=== PATIENT | female | born 1965 | race Caucasian/White ===

== ENCOUNTER 2021-06-25 18:28 | Emergency (ER) | payer BC, SELFPAY ==
[2021-06-25 19:11] VITALS: BP 0/0; PULSE 0; RESP 0; TEMP -17.7; TEMP 0; O2SAT 0
== END 2021-06-25 19:12 | disposition left against medical advice (07) ==
LOC: UTC 18:37
PROVIDERS: Emergency Provider Nurse Practitioner
DX: Z53.21 Procedure and treatment not carried out due to patient leaving prior to being seen by health care provider (principal)

== ENCOUNTER 2021-06-29 09:50 | Emergency (ER) | payer BC, SELFPAY ==
[2021-06-29 10:20] VITALS: BP 134/91; PULSE 96; RESP 21; TEMP 37.1; O2SAT 98; BMI 27.8
--- NOTE | 2021-06-29 10:49 | HMH.EDUTC ---
[facility] [place] Clinical Impression: Exposure to COVID-19 virus Sinusitis Qualifiers: Sinusitis location: unspecified location Chronicity: unspecified Qualified Code(s): J32.9 - Chronic sinusitis, unspecified Disposition: Home, Self-Care Condition on Discharge: Good Instructions: DI for COVID-19 (Suspected or Confirmed ), Coronavirus Disease 2019, Preventing the Spread of Coronavirus Discharge Instructions, DI for Vomiting -- Adult, Nausea and Vomiting-Adult Additional Instructions: *Monitor Temp, Over the counter Motrin or Tylenol as directed/as needed Tylenol every 4 hours and Motrin every 6 hours (as long as your family doctor has told you that you can take it) for fever or pain. and straight to ER if unable to lower temp less than 101.0 after medication given *Warm salt water gargles may help to soothe the throat *Throat Lozenges *Warm fluids like tea with honey may help to soothe the throat *Sleep elevated *Humidifier/Vaporizer Follow up IMMEDIATELY for new or worsening symptoms or no Noticeable improvement over the next 48-72 hours. 911 for difficulty breathing or swallowing You were tested for today for COVID19 your test result should be back in the next 24-48 hours, you may call to the [facility] to see if your test results are back in the next 48 hours [phone] [facility] hours are 9am-9pm You was given a handout with instructions for Self Quarantine and Self isolation for while you wait on test results and what to do if they are positive If you are positive the Health Dept will be contacting you also Make sure to take your Vitamins Vit. C Vit D and Zinc if you can take them Prescriptions: Doxycycline Monohydrate [Doxycycline Panola 100mg Tab] 100 mg PO Q12 7 Days #14 tab Transmission Status: Pending to [id number] Ondansetron [Zofran 4mg ODT] 4 mg PO TIDP PRN #6 tab PRN Reason: Nausea Transmission Status: Pending to [id number] Referrals: Provider,Referral, [Primary Care Provider] - As needed Forms: Work/School Release Time of Disposition: 10:55 Medical Decision Making - Flip Inquiry Pt receiving controlled substance: No Flip was queried for this patient: No Vital Signs: 06/29/21 10:20 Temperature 98.7 F Temperature Source Oral Pulse Rate [Right Brachial] 96 H Respiratory Rate 21 Blood Pressure [Right Arm] 134/91 H Blood Pressure Mean [Right Arm] 105 Blood Pressure Source [Right Arm] Automatic Cuff Blood Pressure Position [Right Arm] Sitting 02 Sat by Pulse Oximetry 98 Oxygen Delivery Method Room Air Orders (Tests/Meds): ORDERS Category Date Time Status Covid-19 Nasal PCR ([facility]) Routine Lab 06/29/21 10:25 Ordered Medical Decision Narrative: Patient states that she has taken zofran before with no interactions or complications [facility] [place] - General Stated complaint: all covid symptoms Time Seen by Provider: 06/29/21 10:49 Mode of Arrival: Ambulatory Source of Information: Patient Limitations: No Limitations Description of Symptoms (Recalled from Triage Doc. by RN): PATIENT C/O SORE THROAT, VOMITING, AND LOSS OF TASTE AND SMELL X 4 DAYS. RECENTLY EXPOSED TO COVID HEENT Symptoms (Recalled from RN notes): Yes Resp Symptoms (Recalled from RN notes): No Skin Symptoms (Recalled from RN notes): No MS Symptoms (Recalled from RN notes): No Functional Status (Recalled from RN notes): WNL - History of Present Illness Provider Complaint: Patient states that she was exposed to COVID last week States that she has since been having sinus pain and pressure along chills, body aches, N/V and cough State that she also loss her taste and smell over the weekend States that sister is having similar symptoms so they come in to get tested for COVID and get her sinuses checked - Related Data Home Medications Medication Instructions Recorded Confirmed cetirizine 10 mg capsule 10 mg PO QDAY 11/30/17 estradiol 1 mg tablet 0.5 mg PO QDAY 11/30/17 montelukast 4 mg or
[2021-06-29 11:00] VITALS: BP 134/91; PULSE 96; RESP 21; TEMP 37.1; O2SAT 98
--- NOTE | 2021-06-30 09:15 | PC.NURSE ---
PT NOTIFIED OF POSITIVE COVID RESULT
== END 2021-06-29 11:05 | disposition home or self-care (01) ==
PROVIDERS: Emergency Provider Nurse Practitioner
DX: U07.1 COVID-19 (principal); J32.9 Chronic sinusitis, unspecified
CPT/HCPCS: 99202; G0463; U0003

== ENCOUNTER 2021-07-05 10:00 | Outpatient (CLI) | payer BC, SELFPAY ==
[2021-07-05] VITALS (8 sets, daily range): BP systolic 110–134; BP diastolic 83–90; PULSE 72–96; RESP 16–18; TEMP 36.8; O2SAT 97–99
== END 2021-07-05 12:30 | disposition home or self-care (01) ==
PROVIDERS: PCP Family Medicine; Visit Provider Family Medicine
DX: U07.1 COVID-19 (principal)
CPT/HCPCS: 96365

== ENCOUNTER 2022-10-06 08:43 | Emergency (ER) | payer BC, SELFPAY ==
[2022-10-06 09:07] VITALS: BP 117/82; PULSE 69; RESP 16; TEMP 36.8; O2SAT 97; BMI 32.1
--- NOTE | 2022-10-06 09:09 | EXP.UTC ---
Discharge Plan Disposition Patient Disposition: Home, Self-Care Condition: Good Prescriptions Prescriptions: New benzonatate [benzonatate] 100 mg capsule 100 mg PO TIDP PRN (Reason: Cough) Qty: 30 0RF oseltamivir [Tamiflu] 75 mg capsule 75 mg PO BID Qty: 10 0RF No Action estradiol 1 mg tablet 0.5 mg PO QDAY montelukast [Singulair] 4 mg granules in packet PO cetirizine [Zyrtec] 10 mg capsule 10 mg PO QDAY omeprazole 10 mg capsule,delayed release(DR/EC) 10 mg PO ONCE ranitidine HCl 150 mg capsule 150 mg PO QHS promethazine-DM 6.25-15 mg/5 mL syrup 5 ml PO Q6H PRN (Reason: cough) Qty: 118 0RF ondansetron 4 MG tablet,disintegrating 4 mg PO TIDP PRN (Reason: Nausea) Qty: 6 0RF doxycycline monohydrate 100 MG tablet 100 mg PO Q12 7 Days Qty: 14 0RF Referrals Follow up/Referrals: Kelley Frazier DO [Primary Care Provider] - See instructions Activity Restrictions/Add. Instructions Additional Instructions/Restrictions: Drink plenty of fluids. Take tylenol or ibuprofen for pain or fever. Take the medications as directed. Follow up with your regular doctor. GO TO THE ER FOR ANY WORSENING SYMPTOMS Clinical Impressions Clinical Impression: Influenza A Stand Alone Forms Stand Alone Forms: Work/School Release Instructions Patient Instructions: DI for Influenza -- Adult, Oseltamivir Discharge ED Provider: Fransico Nguyen [facility] General Stated complaint: cough, runny nose Mode of Arrival: Ambulatory Source of Information: Patient Limitations: No Limitations Time Seen by Provider: 10/06/22 09:09 HEENT Symptoms (Recalled from RN notes): Yes Resp Symptoms (Recalled from RN notes): Yes Skin Symptoms (Recalled from RN notes): No MS Symptoms (Recalled from RN notes): No Functional Status (Recalled from RN notes): n/a History of Present Illness Provider Complaint: pt comes in with c/o sore throat, nasal drainage, productive cough, congestion, hoarseness. symptoms began 3-4 days ago Related Data Home Medications Medication Instructions Recorded Confirmed cetirizine 10 mg capsule (Zyrtec) 10 mg PO QDAY 11/30/17 estradiol 1 mg tablet 0.5 mg PO QDAY 11/30/17 montelukast 4 mg oral granules in PO 11/30/17 packet (Singulair) omeprazole 10 mg capsule,delayed 10 mg PO ONCE 11/30/17 release ranitidine HCl 150 mg capsule 150 mg PO QHS 11/30/17 Previous Rx's Medication Instructions Recorded promethazine-DM 6.25 mg-15 mg/5 mL 5 ml PO Q6H PRN cough #118 mL 11/30/17 oral syrup doxycycline monohydrate 100 mg 100 mg PO Q12 7 days #14 tabs 06/29/21 tablet ondansetron 4 mg disintegrating 4 mg PO TIDP PRN Nausea #6 tabs 06/29/21 tablet benzonatate 100 mg capsule 100 mg PO TIDP PRN Cough #30 caps 10/06/22 oseltamivir 75 mg capsule (Tamiflu) 75 mg PO BID #10 caps 10/06/22 Allergies Allergy/AdvReac Type Severity Reaction Status Date / Time cefaclor [From Ceclor] AdvReac Intermediate Verified 10/06/22 09:09 tramadol [From Ultram] AdvReac Mild Verified 10/06/22 09:09 morphine AdvReac Verified 10/06/22 09:09 Worker's Comp Is this a Worker's Comp case?: No PFSH PFSH Social History Smoking Status: Never smoker alcohol intake: never current occupational status: other Travel in the last 8 weeks: None ROS Obtained: Yes All systems reviewed & no additional complaints except as documented Constitutional Constitutional: Reports chills and Reports fever(s) Eyes Eyes: Denies eye discharge ENT Ears, Nose, Mouth, and Throat: Reports as per HPI Cardiovascular Cardiovascular: Denies chest pain Respiratory Respiratory: Denies chest congestion and Reports cough Gastrointestinal Gastrointestingal: Reports nausea; Denies abdominal pain, constipation, cramping, diarrhea or vomiting Musculoskeletal Musculoskeletal: Denies arthralgias Integumentary/Breasts Skin/Breast:
[2022-10-06 09:11] LABS: UTC Influenza A Antigen Positive (Negative); UTC Influenza B Antigen Negative (Negative); UTC Strep Screen (Rapid) Negative (Negative)
[2022-10-06 09:37] VITALS: BP 117/82; PULSE 69; RESP 16; TEMP 36.8
== END 2022-10-06 09:47 | disposition home or self-care (01) ==
PROVIDERS: Emergency Provider Nurse Practitioner Family; PCP Family Medicine
DX: J10.1 Influenza due to other identified influenza virus with other respiratory manifestations (principal)
CPT/HCPCS: 87804; 87880; 99212; G0463

== ENCOUNTER 2022-10-13 19:12 | Emergency (ER) | payer OTHER, SELFPAY ==
[2022-10-13 20:25] VITALS: BP 144/100; PULSE 79; RESP 18; TEMP 36.8; O2SAT 97; BMI 32.1
[2022-10-13 20:31] VITALS: BMI 32.1
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
--- NOTE | 2022-10-13 20:33 | PC.NURSE ---
pt has refused to wear a c-collar
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
[2022-10-13 22:41] VITALS: BP 145/80; PULSE 85; RESP 20; TEMP 36.8; O2SAT 98
== END 2022-10-13 22:53 | disposition home or self-care (01) ==
PROVIDERS: Emergency Provider Emergency Medicine; PCP Family Medicine
DX: S16.1XXA Strain of muscle, fascia and tendon at neck level, initial encounter (principal); S70.02XA Contusion of left hip, initial encounter; V89.2XXA Person injured in unspecified motor-vehicle accident, traffic, initial encounter; Z88.5 Allergy status to narcotic agent; Z88.1 Allergy status to other antibiotic agents; Z87.891 Personal history of nicotine dependence
CPT/HCPCS: 70450; 71046; 72125; 73502; 99285

== ENCOUNTER 2022-12-18 09:13 | Emergency (ER) | payer OTHER, SELFPAY ==
[2022-12-18 09:25] VITALS: BP 131/86; PULSE 76; RESP 17; TEMP 36.7; O2SAT 98; BMI 29.7
[2022-12-18 09:35] LABS: Apearance,Urine Cloudy (Clear); Color,Urine Dark Yellow (Yellow); PH,Urine 6.5 (5.0-8.5); Protein,Urine Trace (Negative); Specific Gravity, Urine 1.025 (1.005-1.030)
[2022-12-18 09:36] LABS: Bilirubin,Urine Negative (Negative); Blood, Urine 1+ (Negative); Glucose,Urine (UA) Negative (Negative); Ketones,Urine Negative (Negative); Urobilinogen,Urine 1 EU/dl (0.2)
[2022-12-18 09:37] LABS: UTC Leukocyte Esterase,Urine 1+ (Negative); UTC Nitrate,Urine Positive (Negative)
--- NOTE | 2022-12-18 09:54 | EXP.UTC ---
Discharge Plan Disposition Patient Disposition: Home, Self-Care Condition: Good Prescriptions Prescriptions: New sulfamethoxazole-trimethoprim [Bactrim DS] 800-160 mg tablet 1 tab PO Q12H Qty: 20 0RF No Action estradiol 1 mg tablet 0.5 mg PO QDAY montelukast [Singulair] 4 mg granules in packet PO cetirizine [Zyrtec] 10 mg capsule 10 mg PO QDAY omeprazole 10 mg capsule,delayed release(DR/EC) 10 mg PO ONCE ranitidine HCl 150 mg capsule 150 mg PO QHS ondansetron 4 MG tablet,disintegrating 4 mg PO TIDP PRN (Reason: Nausea) Qty: 6 0RF Referrals Follow up/Referrals: Kelley Frazier DO [Primary Care Provider] - See instructions Activity Restrictions/Add. Instructions Additional Instructions/Restrictions: Increase fluids, water and not soda or tea. Can drink cranberry juice or cranberry extract. White front to back Wear cotton underwear Empty bladder after intercourse Start antibiotics immediately and make sure you take the full course although you may start to see improvement over the next 48 hours. You can eat yogurt or take probiotics to decrease diarrhea or yeast infection caused by the antibiotic Be sure to follow-up anytime for new or worsening symptoms in 48 hours for wound urine culture results be sure to let you PCP no recent urine for culture so they can request records and ensure that you have appropriate antibiotic if you are not getting better or getting worse. If symptoms worsen or do not improve return or be seen in the ER. Follow-up with primary care this week. Clinical Impressions Clinical Impression: UTI (urinary tract infection) Instructions Patient Instructions: DI for Urinary Tract Infection (UTI) Discharge ED Provider: Azam ([facility])Reilly [facility] [place] HPI General Stated complaint: Possible UTI Burning Mode of Arrival: Ambulatory Source of Information: Patient Limitations: No Limitations Time Seen by Provider: 12/18/22 09:54 Description of Symptoms (Recalled from Triage Doc. by RN): PATIENT C/O BURNING WITH URINATION X 2 DAYS HEENT Symptoms (Recalled from RN notes): No Resp Symptoms (Recalled from RN notes): No Skin Symptoms (Recalled from RN notes): No MS Symptoms (Recalled from RN notes): No Functional Status (Recalled from RN notes): WNL History of Present Illness Provider Complaint: 57 yr old female presents for burning with urination, freq, urgency for 3 days Related Data Home Medications Medication Instructions Recorded Confirmed cetirizine 10 mg capsule (Zyrtec) 10 mg PO QDAY 11/30/17 estradiol 1 mg tablet 0.5 mg PO QDAY 11/30/17 montelukast 4 mg oral granules in PO 11/30/17 packet (Singulair) omeprazole 10 mg capsule,delayed 10 mg PO ONCE 11/30/17 release ranitidine HCl 150 mg capsule 150 mg PO QHS 11/30/17 Previous Rx's Medication Instructions Recorded ondansetron 4 mg disintegrating 4 mg PO TIDP PRN Nausea #6 tabs 06/29/21 tablet sulfamethoxazole 800 1 tab PO Q12H #20 tabs 12/18/22 mg-trimethoprim 160 mg tablet (Bactrim DS) Allergies Allergy/AdvReac Type Severity Reaction Status Date / Time cefaclor [From Ceclor] AdvReac Intermediate Verified 10/06/22 09:09 tramadol [From Ultram] AdvReac Mild Verified 10/06/22 09:09 morphine AdvReac Verified 10/06/22 09:09 Worker's Comp Is this a Worker's Comp case?: No [facility] Disclaimer: The information contained in this section may have been updated after the patient was seen, as this information can be updated by other users. 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
[2022-12-18 10:17] VITALS: BP 131/86; PULSE 76; RESP 17; TEMP 36.7; O2SAT 98
== END 2022-12-18 10:21 | disposition home or self-care (01) ==
PROVIDERS: Emergency Provider Nurse Practitioner Family; PCP Family Medicine
DX: N39.0 Urinary tract infection, site not specified (principal)
CPT/HCPCS: 81003; 87086; 87088; 87186; 99212; 99213; G0463

== ENCOUNTER 2023-05-11 13:50 | Emergency (ER) | payer OTHER, SELFPAY ==
[2023-05-11 14:00] VITALS: BP 110/73; PULSE 63; RESP 18; TEMP 36.6; O2SAT 98; BMI 27.2
[2023-05-11 14:14] LABS: Apearance,Urine Clear (Clear); Bilirubin,Urine Negative (Negative); Blood, Urine 3+ (Negative); Color,Urine Yellow (Yellow); Glucose,Urine (UA) Negative (Negative); Ketones,Urine Negative (Negative); Protein,Urine 1+ (Negative); Specific Gravity, Urine 1.005 (1.005-1.030); UTC Leukocyte Esterase,Urine 3+ (Negative); UTC Nitrate,Urine Negative (Negative); Urobilinogen,Urine 0.2 EU/dl (0.2)
[2023-05-11 14:22] VITALS: BP 110/73; PULSE 63; RESP 18; TEMP 36.6; O2SAT 98
--- NOTE | 2023-05-11 14:35 | EXP.UTC ---
Discharge Plan Disposition Patient Disposition: Home, Self-Care Condition: Good Prescriptions Prescriptions: New sulfamethoxazole-trimethoprim [Bactrim DS] 800-160 mg tablet 1 tab PO BID 10 Days Qty: 20 0RF phenazopyridine [Pyridium] 200 mg tablet 200 mg PO Q8H 2 Days Qty: 6 0RF No Action estradiol 1 mg tablet 0.5 mg PO QDAY montelukast [Singulair] 4 mg granules in packet PO cetirizine [Zyrtec] 10 mg capsule 10 mg PO QDAY omeprazole 10 mg capsule,delayed release(DR/EC) 10 mg PO ONCE ranitidine HCl 150 mg capsule 150 mg PO QHS sulfamethoxazole-trimethoprim [Bactrim DS] 800-160 mg tablet 1 tab PO Q12H Qty: 20 0RF phenazopyridine [Pyridium] 100 mg tablet 100 mg PO TID 2 Days Qty: 6 0RF ondansetron 4 MG tablet,disintegrating 4 mg PO TIDP PRN (Reason: Nausea) Qty: 6 0RF Referrals Follow up/Referrals: Kelley Frazier DO [Primary Care Provider] - See instructions Activity Restrictions/Add. Instructions Additional Instructions/Restrictions: *Increase fluids. Water not Soda or Tea *Start antibiotic immediately and be sure to take as ordered for the FULL length of time although you should start to see improvement over the next 48 hours *Pyridium as needed Remember this medication will turn your urine . This is normal but it will stain what ever it gets on *You should not use Pyridium for more than 48 hours. If so , follow up with your primary physician to review urine culture and ensure that antibiotic is adequate for infection *Be SURE to follow up anytime for new or worsening symptoms with your family doctor. AND in 48 hours for urine culture results with your family doctor, if you do not have a doctor then you may call back to the [facility] for urine culture results and further treatment. We do recommend that you choose and establish care with a Primary Care Physician. ?AND follow up with them ?in 10-14 days to repeat UA to ensure infection is resolved and blood no longer present *Be sure to let your PCP know that we sent urine cultures from the [facility] so they can follow up to ensure that you area the on the correct antibiotic Call your doctor office and make appointment for 48 hours (2 days from today) ?to follow up and get the results of your urine culture and further treatment Make sure to watch your blood sugar some antibiotics along with diabetic medication it may lower your blood sugar Clinical Impressions Clinical Impression: UTI (urinary tract infection) Instructions Patient Instructions: DI for Urinary Tract Infection (UTI), Urinary Tract Infection Discharge ED Provider: Soraya Lopez [facility] [place] General Stated complaint: Possible UTI Mode of Arrival: Ambulatory Source of Information: Patient Limitations: No Limitations Time Seen by Provider: 05/11/23 14:35 Description of Symptoms (Recalled from Triage Doc. by RN): PATIENT C/O BURNING WITH URINATION X 4 DAYS HEENT Symptoms (Recalled from RN notes): No Resp Symptoms (Recalled from RN notes): No Skin Symptoms (Recalled from RN notes): No MS Symptoms (Recalled from RN notes): No Functional Status (Recalled from RN notes): WNL History of Present Illness Provider Complaint: Patient states that she feels like she may have a UTI States that she has been having burning with urination States that feels like she has UTI like she did last time so she came in Denies fever, denies abdominal pain and denies difficulty urinating Related Data Home Medications Medication Instructions Recorded Confirmed cetirizine 10 mg capsule (Zyrtec) 10 mg PO QDAY 11/30/17 estradiol 1 mg tablet 0.5 mg PO QDAY 11/30/17 montelukast 4 mg oral granules in PO 11/30/17 packet (Singulair) omeprazole 10 mg capsule,delayed 10 mg PO ONCE 11/30/17 release ranitidine HCl 150 mg capsule 150 mg PO QHS 11/30/17 Previous Rx's Medication Instructions Recorded ondansetron 4 mg disintegrating 4 mg PO TIDP PRN Nausea #6 tabs 06/29/21
== END 2023-05-11 14:52 | disposition home or self-care (01) ==
PROVIDERS: Emergency Provider Nurse Practitioner; PCP Family Medicine
DX: N39.0 Urinary tract infection, site not specified (principal); B96.29 Other Escherichia coli [E. coli] as the cause of diseases classified elsewhere; I10 Essential (primary) hypertension; E78.5 Hyperlipidemia, unspecified; F41.9 Anxiety disorder, unspecified; F32.A Depression, unspecified
CPT/HCPCS: 81003; 87086; 87088; 87186; 99212; 99214; G0463

== ENCOUNTER → 2023-06-13 14:52 | Outpatient (CLI) | payer OTHER, SELFPAY ==
[2023-06-13 15:27] LABS: COC Drug Screen Collection Only
== END ==
PROVIDERS: PCP Family Medicine; Visit Provider Family Medicine
DX: Z79.899 Other long term (current) drug therapy (principal)

== ENCOUNTER 2023-07-16 10:22 | Emergency (ER) | payer BC, SELFPAY ==
[2023-07-16 11:05] VITALS: BP 107/88; PULSE 87; RESP 20; TEMP 36.6; O2SAT 97; BMI 28.3
--- NOTE | 2023-07-16 11:25 | EXP.UTC ---
Discharge Plan Disposition Patient Disposition: Home, Self-Care Condition: Good Prescriptions Prescriptions: New sulfamethoxazole-trimethoprim [Bactrim DS] 800-160 mg tablet 1 tab PO Q12H Qty: 20 0RF phenazopyridine [Pyridium] 200 mg tablet 200 mg PO Q8H 2 Days Qty: 6 0RF No Action estradiol 1 mg tablet 0.5 mg PO QDAY montelukast [Singulair] 4 mg granules in packet PO cetirizine [Zyrtec] 10 mg capsule 10 mg PO QDAY omeprazole 10 mg capsule,delayed release(DR/EC) 10 mg PO ONCE ranitidine HCl 150 mg capsule 150 mg PO QHS sulfamethoxazole-trimethoprim [Bactrim DS] 800-160 mg tablet 1 tab PO Q12H Qty: 20 0RF phenazopyridine [Pyridium] 100 mg tablet 100 mg PO TID 2 Days Qty: 6 0RF ondansetron 4 MG tablet,disintegrating 4 mg PO TIDP PRN (Reason: Nausea) Qty: 6 0RF sulfamethoxazole-trimethoprim [Bactrim DS] 800-160 mg tablet 1 tab PO BID 10 Days Qty: 20 0RF phenazopyridine [Pyridium] 200 mg tablet 200 mg PO Q8H 2 Days Qty: 6 0RF Referrals Follow up/Referrals: Provider,Referral, MD [Primary Care Provider] - See instructions Activity Restrictions/Add. Instructions Additional Instructions/Restrictions: *Increase fluids. Water not Soda or Tea *Start antibiotic immediately and be sure to take as ordered for the FULL length of time although you should start to see improvement over the next 48 hours *Pyridium as needed Remember this medication will turn your urine . This is normal but it will stain what ever it gets on *You should not use Pyridium for more than 48 hours. If so , follow up with your primary physician to review urine culture and ensure that antibiotic is adequate for infection *Be SURE to follow up anytime for new or worsening symptoms with your family doctor. AND in 48 hours for urine culture results with your family doctor, if you do not have a doctor then you may call back to the [facility] for urine culture results and further treatment. We do recommend that you choose and establish care with a Primary Care Physician. ?AND follow up with them ?in 10-14 days to repeat UA to ensure infection is resolved and blood no longer present *Be sure to let your PCP know that we sent urine cultures from the [facility] so they can follow up to ensure that you area the on the correct antibiotic Call your doctor office and make appointment for 48 hours (2 days from today) ?to follow up and get the results of your urine culture and further treatment Clinical Impressions Clinical Impression: UTI (urinary tract infection) Instructions Patient Instructions: Trimethoprim/Sulfamethoxazole (Alternative Therapy), Urinary Tract Infection, DI for Urinary Tract Infection (UTI) [place] ED [place] [facility] [place] General Stated complaint: possible uti Mode of Arrival: Ambulatory Source of Information: Patient Limitations: No Limitations Time Seen by Provider: 07/16/23 11:10 Description of Symptoms (Recalled from Triage Doc. by RN): PATIENT C/O PAIN WITH URINATION X 4 DAYS HEENT Symptoms (Recalled from RN notes): No Resp Symptoms (Recalled from RN notes): No Skin Symptoms (Recalled from RN notes): No MS Symptoms (Recalled from RN notes): No Functional Status (Recalled from RN notes): WNL History of Present Illness Provider Complaint: Patient states that for the last few days she has been having pain with urination again like she has had several times before with a UTI Related Data Home Medications Medication Instructions Recorded Confirmed cetirizine 10 mg capsule (Zyrtec) 10 mg PO QDAY 11/30/17 estradiol 1 mg tablet 0.5 mg PO QDAY 11/30/17 montelukast 4 mg oral granules in PO 11/30/17 packet (Singulair) omeprazole 10 mg capsule,delayed 10 mg PO ONCE 11/30/17 release ranitidine HCl 150 mg capsule 150 mg PO QHS 11/30/17 Previous Rx's Medication Instructions Recorded ondansetron 4 mg disintegrating 4 mg PO TIDP PRN Nausea #6 tabs 0
[2023-07-16 11:34] LABS: Microscopic, Urine URINE MICROSCOPIC (MICROSCOPIC)
[2023-07-16 11:51] LABS: Bilirubin,Urine Negative (Negative); Blood, Urine 2+ (Negative); Glucose,Urine (UA) Negative (Negative); Ketones,Urine Negative (Negative); Leukocyte Esterase,Urine 2+ (Negative); Nitrate,Urine Negative (Negative); Protein,Urine 1+ (Negative); Urobilinogen,Urine 0.2 EU/dl (0.2)
[2023-07-16 11:55] VITALS: BP 107/88; PULSE 87; RESP 20; TEMP 36.6; O2SAT 97
[2023-07-16 11:59] LABS: Bacteria,Urine Trace /lpf; WBC,Urine TNTC #/hpf (0-3)
[2023-07-16 12:00] LABS: Color,Urine Yellow (Yellow)
[2023-07-16 12:01] LABS: Appearance,Urine Cloudy (Clear)
== END 2023-07-16 12:04 | disposition home or self-care (01) ==
PROVIDERS: Emergency Provider Nurse Practitioner
DX: N39.0 Urinary tract infection, site not specified (principal); B96.29 Other Escherichia coli [E. coli] as the cause of diseases classified elsewhere; I10 Essential (primary) hypertension; E78.5 Hyperlipidemia, unspecified; F41.9 Anxiety disorder, unspecified; F32.A Depression, unspecified; Z87.891 Personal history of nicotine dependence
CPT/HCPCS: 81001; 87086; 87088; 87186; 99212; 99214; G0463

== ENCOUNTER 2024-03-02 09:53 | Emergency (ER) | payer BC, SELFPAY ==
--- NOTE | 2024-03-02 10:10 | XR_ITS ---
FINAL REPORT CLINICAL HISTORY: fall FINDINGS: 3 images of the right wrist were obtained. There is a 5 mm osseous density seen on the lateral view overlying the dorsal aspect of the distal carpal row, consistent with a mildly displaced triquetral fracture. The joint spaces are intact. Mild dorsal soft tissue swelling is present. IMPRESSION: 5 mm osseous density seen on the lateral view overlying the dorsal aspect of the distal carpal row, consistent with a mildly displaced triquetral fracture. Reviewed, Interpreted and Dictated by Marc Lezama MD Transcribed by Noemi Jorge Authenticated and [facility]
--- NOTE | 2024-03-02 10:10 | XR_ITS ---
FINAL REPORT CLINICAL HISTORY: fall COMPARISON: None FINDINGS: 3 images of the left ankle were obtained. There is an oblique comminuted fracture of the distal fibula and of the base of the medial malleolus. There is a vertical fracture line through the mid talus which extends almost through the talus. The joint spaces are intact. There is marked soft tissue swelling surrounding the ankle, particularly laterally. IMPRESSION: Fractures of the distal fibula and medial malleolus as described, the medial malleolar fracture extends into the tibiotalar joint. There is a vertical fracture through the mid talus which extends almost entirely through the talus. Reviewed, Interpreted and Dictated by Marc Lezama MD Transcribed by Noemi Jorge Authenticated and . [facility]
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
[2024-03-02 10:20] VITALS: BP 124/82; PULSE 83; RESP 20; TEMP 36.5; O2SAT 100; BMI 28.1
[2024-03-02] MEDS: HYDROCODONE/APAP 5/325 MG TABLET 1 TAB PO (11:21)
[2024-03-02 12:15] VITALS: BP 133/92; PULSE 72; RESP 18; TEMP 37.1; O2SAT 100; BMI 28.1
--- NOTE | 2024-03-02 12:15 | CT_ITS ---
FINAL REPORT TECHNIQUE: Thin section axial CT images with coronal and sagittal reformats were performed. This study was performed with techniques to keep radiation doses as low as reasonably achievable (ALARA). Individualized dose reduction techniques using automated exposure control or adjustment of mA and/or kV according to the patient's size were employed. CLINICAL HISTORY: tib/fib/talus fx COMPARISON: None FINDINGS: CT LEFT FOOT: CT examination of the foot was performed with multiplanar reconstructions. There are fractures of the medial malleolus, distal fibula, and a comminuted talar fracture that have been described on the CT of the ankle from the same date. Within the foot itself, there is a fracture of the inferior aspect of the navicular, which was not seen on the ankle film, with minimal displacement but with intra-articular extension posteriorly. No other evidence of fracture is seen in the foot. IMPRESSION: Fractures of the medial malleolus, distal fibula, and comminuted talar fracture were described in the dictation for the CT of the ankle from the same date. Within the foot itself, there is a fracture of the inferior aspect of the tarsal navicular which was not seen on the ankle CT, with minimal displacement and intra-articular extension into the talonavicular joint. Reviewed, Interpreted and Dictated by Marc Lezama MD Transcribed by Noemi Jorge Authenticated and [facility]
--- NOTE | 2024-03-02 12:15 | CT_ITS ---
FINAL REPORT CLINICAL HISTORY: tib/fib/talus fx COMPARISON: None FINDINGS: CT LEFT ANKLE: There is an oblique fracture of the distal fibula, minimally displaced. There is a fracture of the base of the medial malleolus, mildly displaced, which extends into the tibiotalar joint. There is a severely comminuted and fragmented fracture of the posterior talus with intra-articular extension inferiorly into the posterior articular facet of subtalar joint, and superiorly into the tibiotalar joint. There is diastases of the primary vertical fracture line through the mid talus extending to the mortise, and the diastases measures approximately 5 m IMPRESSION: Fracture of the distal fibula, oblique, minimally displaced. Fracture of the base of the medial malleolus, mildly displaced, with intra-articular extension. Severely comminuted and fragmented fracture of the posterior talus with intra-articular extension inferiorly to the posterior articular facet of the subtalar joint, and superiorly into the tibiotalar joint. There is diastases of the primary vertical fracture line through the mid talus extending to the mortise, measuring approximately 5 mm. Reviewed, Interpreted and Dictated by Marc Lezama MD Transcribed by Noemi Jorge Authenticated and [facility]
--- NOTE | 2024-03-02 12:15 | ED_ITS ---
Discharge Plan Disposition Patient Disposition: Xfer Short-Term Hosp Condition: Good Prescriptions Prescriptions: No Action estradiol 1 mg tablet 0.5 mg PO QDAY montelukast [Singulair] 4 mg granules in packet PO cetirizine [Zyrtec] 10 mg capsule 10 mg PO QDAY omeprazole 10 mg capsule,delayed release(DR/EC) 10 mg PO ONCE ranitidine HCl 150 mg capsule 150 mg PO QHS sulfamethoxazole-trimethoprim [Bactrim DS] 800-160 mg tablet 1 tab PO Q12H Qty: 20 0RF phenazopyridine [Pyridium] 100 mg tablet 100 mg PO TID 2 Days Qty: 6 0RF ondansetron 4 MG tablet,disintegrating 4 mg PO TIDP PRN (Reason: Nausea) Qty: 6 0RF sulfamethoxazole-trimethoprim [Bactrim DS] 800-160 mg tablet 1 tab PO BID 10 Days Qty: 20 0RF phenazopyridine [Pyridium] 200 mg tablet 200 mg PO Q8H 2 Days Qty: 6 0RF sulfamethoxazole-trimethoprim [Bactrim DS] 800-160 mg tablet 1 tab PO Q12H Qty: 20 0RF phenazopyridine [Pyridium] 200 mg tablet 200 mg PO Q8H 2 Days Qty: 6 0RF Referrals Follow up/Referrals: Provider,Referral, MD [Primary Care Provider] - See instructions Clinical Impressions Clinical Impression: Ankle fracture, left, Fracture of right wrist Stand Alone Forms Stand Alone Forms: Transfer Record - ED Discharge ED Provider: Joon Armstrong Adult HPI General Chief complaint: Extremity Injury, Lower Stated complaint: AO-Pain in R wrist and L ankle Time Seen by Provider: 03/02/24 10:16 Mode of Arrival: Ambulatory Source of Information: Patient Limitations: No Limitations Description of Symptoms (Recalled from ER Triage Doc. by RN): PATIENT STATES SHE WAS STANDING ON A STOOL CHANGING A LIGHT BULB THIS MORNING WHEN THE STOOL SHIFTED AND SHE FELL. SHE REPORTS INJURING LEFT ANKLE AND RIGHT WRIST. SHE ALSO STATES THE LIGHT BULB BUSTED ON THE RIGHT SIDE OF HER HEAD. PATIENT DENIES LOC History of Present Illness HPI narrative: 58-year-old female presents to the ER from urgent care with concerns of fractures in her right upper extremity, left lower extremity. Patient states around 9 AM she was standing on a stool changing a light bulb when the stool wobbled and she fell. Patient did strike the right side of her head, no loss of consciousness, no blood thinners, no neck pain. Patient was evaluated in urgent care with a identified left ankle fracture including distal fibula, medial malleolus, extension into the tibiotalar joint, fracture of the talus. Additionally, patient has an abnormality in the lateral view of her right wrist concerning for possible triquetral fracture. Onset (ago): hour(s) (1) Location: left and lower extremity Severity scale (1-10): 8 Quality: sharp Relieving factors: immobilization Exacerbating factors: movement Associated symptoms: denies other symptoms Treatments prior to arrival: none Related Data Home Medications Medication Instructions Recorded Confirmed cetirizine 10 mg capsule (Zyrtec) 10 mg PO QDAY 11/30/17 estradiol 1 mg tablet 0.5 mg PO QDAY 11/30/17 montelukast 4 mg oral granules in PO 11/30/17 packet (Singulair) omeprazole 10 mg capsule,delayed 10 mg PO ONCE 11/30/17 release ranitidine HCl 150 mg capsule 150 mg PO QHS 11/30/17 Previous Rx's Medication Instructions Recorded ondansetron 4 mg disintegrating 4 mg PO TIDP PRN Nausea #6 tabs 06/29/21 tablet phenazopyridine 100 mg tablet 100 mg PO TID 2 days #6 tabs 12/18/22 (Pyridium) sulfamethoxazole 800 1 tab PO Q12H #20 tabs 12/18/22 mg-trimethoprim 160 mg tablet (Bactrim DS) phenazopyridine 200 mg tablet 200 mg PO Q8H pain 2 days #6 tabs 05/11/23 (Pyridium) sulfamethoxazole 800 1 tab PO BID 10 days #20 tabs 05/11/23 mg-trimethoprim 160 mg tablet (Bactrim DS) phenazopyridine 200 mg tablet 200 mg PO Q8H pain 2 days #6 tabs 07/16/23 (Pyridium) sulfamethoxazole 800 1 tab PO Q12H #20 tabs 07/16/23 mg-trimethoprim 160 mg tablet (Bactrim DS) Allergies Allergy/AdvReac Type Severity Reaction Status Date / Time cefaclor [From Ceclor] AdvReac Intermediate Verified 10/06/22 09:09 tramadol [From Ultram] AdvReac Mild Verified 10/06/22 09:09 morphine AdvReac Verified 10/06/22 09:09 [facility] Disclaimer: The information contained in this section may have been updated after the patient was seen, as this information can be updated by other users. 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) Smoking Status: Never smoker alcohol intake: never current occupational status: other Travel in the last 8 weeks: None ROS Obtained: Yes All systems reviewed & no additional complaints except as documented Constitutional Constitutional: Denies chills, Denies fever(s), Denies headache(s) and Denies weakness Eyes Eyes: Denies change in vision ENT Ears, Nose, Mouth, and Throat: Denies dizziness, Denies headache(s), Denies nasal congestion and Denies sore throat Cardiovascular Cardiovascular: Denies chest pain, Denies dyspnea and Denies leg edema Respiratory Respiratory: Denies cough and Denies dyspnea Gastrointestinal Gastrointestingal: Denies constipation, diarrhea, nausea or vomiting Genitourinary Female Genitourinary: Denies dysuria Musculoskeletal Musculoskeletal: Reports arthralgias, Reports deformity (Left ankle), Reports joint swelling, Denies myalgias, Denies numbness and Denies tingling Integumentary/Breasts Skin/Breast: Denies change in pigmentation and Reports other (Abrasion over right eyebrow) Neurologic Neurologic: Denies dizziness, Denies headache(s), Denies numbness, Denies tingling and Denies weakness Physical Exam General General appearance: alert and in no apparent distress Head Head exam: normocephalic and other (Abrasion over right eyebrow, no gaping, hemostatic, no foreign body on inspection) Eye Eye exam: Present PERRL and EOMI ENT ENT exam: Present mucous membranes moist Neck Neck exam: Present normal inspection and full ROM Chest Chest inspection: Present symmetric chest wall rise Respiratory Respiratory exam: Absent respiratory distress or stridor Cardiovascular Cardiovascular exam: Present regular rate and normal rhythm Extremities Exam Extremities exam: Present tenderness (Tenderness to palpation of the left ankle, right wrist, swelling present over both these joints, significant swelling of the left ankle), joint swelling and other (Neurovascularly intact distal to both injuries) Neurological Exam Neurological exam: Present alert and oriented X3; Absent motor sensory deficit Psychiatric Psychiatric exam: Present normal affect and normal mood Skin Skin exam: Present warm and dry Medical Decision Making Medical Records Medical records reviewed: Yes I reviewed the patient's medical records. MR Comment: Urgent care note demonstrates Dr. eHad with orthopedics was consulted for these injuries and patient was sent to the urgent care with instructions to receive CT scan. He is recommending follow-up with foot/ankle specialist. Flip Paige Pt receiving controlled substance: No Vital Signs: 03/02/24 10:20 03/02/24 12:15 Temperature 97.7 F 98.8 F Temperature Source Oral Oral Pulse Rate [Left Brachial] 83 72 Respiratory Rate 20 18 Blood Pressure [Left Arm] 124/82 133/92 H Blood Pressure Mean [Left Arm] 96 105 Blood Pressure Source [Left Arm] Automatic Cuff Automatic Cuff Blood Pressure Position [Left Arm] Sitting Sitting 02 Sat by Pulse Oximetry 100 100 Oxygen Delivery Method Room Air Room Air Orders (Tests/Meds): ED MEDICATIONS Discontinued Medications Generic Name Dose Route Start Last Admin Trade Name Rogerq PRN Reason Stop Dose Admin Hydrocodone Bitart/Acetaminophen 1 tab 03/02/24 11:15 03/02/24 11:21 Hydrocodone/Apap 5/325 Mg Tablet PO 03/02/24 11:16 1 tab ONCE ONE Administration Oxycodone HCl 5 mg 03/02/24 12:59 Oxycodone 5mg Immediate Release Tablet PO 03/02/24 13:00 ONCE ONE ORDERS Category Date Time Status CT ankle LT wo con Stat Cat Scan 03/02/24 12:[address] foot LT wo con Stat Cat Scan 03/02/24 12:15 Taken Wrist XR right minimum 3 views [XR wrist RT min 3V] Exams 03/02/24 10:10 Taken Stat XR ankle LT min 3V Stat Exams 03/02/24 10:10 Taken Medical Decision Narrative: 58-year-old female presents to the ER with concerns of right upper extremity and left lower extremity injury after falling off a stool changing a light bulb. On initial evaluation she has tenderness to palpation as well as swelling of the right wrist, left ankle, neurovascularly intact distally. Right wrist range of motion is intact and patient states it feels better than it did earlier. Left ankle does not have range of motion without severe pain, it is significantly swollen. Differential diagnosis includes but is not limited to fracture, dislocation, intra-articular extension. See comments in HPI regarding imaging that has already been performed and urgent care workup. CT left lower extremity has been ordered. I personally interpreted the CT which demonstrates distal fibula, medial malleolus fracture, extensive injury to the talus with intra-articular extension. I consulted Dr. Gray with orthopedics, he reviewed imaging and recommends transfer to for foot and ankle specialist. I consulted [facility] transfer center and reviewed patient's injuries and concerns from our orthopedist with them. Patient has been accepted for ED to ED transfer under Dr. Sexton. Patient was placed in a right upper extremity elastic cock up splint for her wrist injury. I splinted the left lower extremity for support during transport, see procedure note for details. Patient was not happy about the idea of transfer to but was amenable to it. She requested to go by private vehicle which I believe is reasonable since I have very low concern for acute life- threatening injury. I did explain to her that she must go directly to from the ER. Patient received 1 dose of oral oxycodone in the ER for pain management. Patient has transport to with a family member. She was discharged from our ER in stable condition and reports that she is going directly to .. Procedures Orthopedic Fracture Reduction Fracture #1: Time Out Performed: Yes Side: left Fracture Reduction Location: other (Ankle) Analgesia: none Technique: other (Traction, holding the toes at 90 degrees to the bed) Splint Applied: Yes Patient Tolerated Procedure: well Orthopedic Splinting/Casting Injury #1: Side: left Lower Extremity Injury Location: ankle Lower Extremity Immobilizer: posterior splint Additional Comments: Posterior slab short leg splint was placed on the distal left lower extremity due to medial malleolus, distal fibula, talus fractures. Plaster, cotton roll, and elastic bandage were used for splinting materials. Splint was personally placed and adjusted by me. Neurovascularly intact prior to and after procedure. Patient tolerated procedure well. Post Cast/Splinting Neuro Status: intact Post Cast/Splinting Vasc Status: intact Critical Care Critical Care Time Critical Care Time: No
--- NOTE | 2024-03-02 12:23 | PC.NURSE ---
patient to RAD at this time
--- NOTE | 2024-03-02 12:52 | PC.NURSE ---
called [facility] per Dr Armstrong to speak with them about this pt. to see about being transferred to [facility]
[2024-03-02] MEDS: OXYCODONE 5MG IMMEDIATE RELEASE TABLET 5 MG PO (13:12)
--- NOTE | 2024-03-02 13:15 | PC.NURSE ---
Report given to MELLISA Jaimes at ED at this time. at bedside at this time placing split to left foot.
[2024-03-02 13:26] VITALS: BP 126/88; PULSE 80; RESP 20; TEMP 37.1; O2SAT 100
== END 2024-03-02 13:29 | disposition short-term general hospital (02) ==
LOC: UTC 12:05 → ER 12:06
PROVIDERS: Emergency Provider Emergency Medicine
DX: S82.452A Displaced comminuted fracture of shaft of left fibula, initial encounter for closed fracture; S82.52XA Displaced fracture of medial malleolus of left tibia, initial encounter for closed fracture; S92.102A Unspecified fracture of left talus, initial encounter for closed fracture; S62.111A Displaced fracture of triquetrum [cuneiform] bone, right wrist, initial encounter for closed fracture; W08.XXXA Fall from other furniture, initial encounter; I10 Essential (primary) hypertension; E78.5 Hyperlipidemia, unspecified; K21.9 Gastro-esophageal reflux disease without esophagitis
CPT/HCPCS: 29515; 73110; 73610; 73700; 99285

== ENCOUNTER 2024-08-05 09:21 | Emergency (ER) | payer BC, SELFPAY ==
[2024-08-05 10:13] VITALS: BP 121/68; PULSE 63; RESP 18; TEMP 36.9; O2SAT 99; BMI 28.1
--- NOTE | 2024-08-05 10:42 | EXP.UTC ---
Discharge Plan Disposition Patient Disposition: Home, Self-Care Condition: Good Prescriptions Prescriptions: New clindamycin HCl 300 mg capsule 300 mg PO Q8H Qty: 30 0RF ibuprofen [IBU] 800 mg tablet 800 mg PO Q8HP PRN (Reason: Moderate Pain) Qty: 30 0RF fluconazole 150 mg tablet 150 mg PO ONCE Qty: 1 3RF No Action estradiol 1 mg tablet 0.5 mg PO QDAY montelukast [Singulair] 4 mg granules in packet PO cetirizine [Zyrtec] 10 mg capsule 10 mg PO QDAY omeprazole 10 mg capsule,delayed release(DR/EC) 10 mg PO ONCE ranitidine HCl 150 mg capsule 150 mg PO QHS sulfamethoxazole-trimethoprim [Bactrim DS] 800-160 mg tablet 1 tab PO Q12H Qty: 20 0RF phenazopyridine [Pyridium] 100 mg tablet 100 mg PO TID 2 Days Qty: 6 0RF ondansetron 4 MG tablet,disintegrating 4 mg PO TIDP PRN (Reason: Nausea) Qty: 6 0RF sulfamethoxazole-trimethoprim [Bactrim DS] 800-160 mg tablet 1 tab PO BID 10 Days Qty: 20 0RF phenazopyridine [Pyridium] 200 mg tablet 200 mg PO Q8H 2 Days Qty: 6 0RF sulfamethoxazole-trimethoprim [Bactrim DS] 800-160 mg tablet 1 tab PO Q12H Qty: 20 0RF phenazopyridine [Pyridium] 200 mg tablet 200 mg PO Q8H 2 Days Qty: 6 0RF Referrals Follow up/Referrals: Provider,Referral, MD [Primary Care Provider] - See instructions Activity Restrictions/Add. Instructions Additional Instructions/Restrictions: Take the medications as directed. Follow up with your regular doctor. Call your dentist and get in to be seen there as soon as you can. GO TO THE ER FOR ANY WORSENING SYMPTOMS Clinical Impressions Clinical Impression: Dental abscess, Pain, dental, Jaw pain Instructions Patient Instructions: DI for Tooth Abscess, Ibuprofen, Clindamycin Print Language Print Language: Kyrgyz Discharge ED Provider: Fransico Nguyen [facility] [place] General Stated complaint: cracked tooth pain Mode of Arrival: Ambulatory Source of Information: Patient Limitations: No Limitations Time Seen by Provider: 08/05/24 10:42 Description of Symptoms (Recalled from Triage Doc. by RN): Reports her top lip being swollen and a cracked tooth. HEENT Symptoms (Recalled from RN notes): Yes Resp Symptoms (Recalled from RN notes): No Skin Symptoms (Recalled from RN notes): No MS Symptoms (Recalled from RN notes): No Functional Status (Recalled from RN notes): wnl Related Data Home Medications ?Medication ?Instructions ?Recorded ?Confirmed cetirizine 10 mg capsule (Zyrtec) 10 mg PO QDAY 11/30/17 estradiol 1 mg tablet 0.5 mg PO QDAY 11/30/17 montelukast 4 mg oral granules in PO 11/30/17 packet (Singulair) omeprazole 10 mg capsule,delayed 10 mg PO ONCE 11/30/17 release ranitidine HCl 150 mg capsule 150 mg PO QHS 11/30/17 Previous Rx's ?Medication ?Instructions ?Recorded ondansetron 4 mg disintegrating 4 mg PO TIDP PRN Nausea #6 tabs 06/29/21 tablet phenazopyridine 100 mg tablet 100 mg PO TID 2 days #6 tabs 12/18/22 (Pyridium) sulfamethoxazole 800 1 tab PO Q12H #20 tabs 12/18/22 mg-trimethoprim 160 mg tablet (Bactrim DS) phenazopyridine 200 mg tablet 200 mg PO Q8H pain 2 days #6 tabs 05/11/23 (Pyridium) sulfamethoxazole 800 1 tab PO BID 10 days #20 tabs 05/11/23 mg-trimethoprim 160 mg tablet (Bactrim DS) phenazopyridine 200 mg tablet 200 mg PO Q8H pain 2 days #6 tabs 07/16/23 (Pyridium) sulfamethoxazole 800 1 tab PO Q12H #20 tabs 07/16/23 mg-trimethoprim 160 mg tablet (Bactrim DS) clindamycin HCl 300 mg capsule 300 mg PO Q8H #30 caps 08/05/24 fluconazole 150 mg tablet 150 mg PO ONCE 1 dose #1 tab 08/05/24 ibuprofen 800 mg tablet (IBU) 800 mg PO Q8HP PRN Moderate Pain 08/05/24 #30 tabs Allergies Allergy/AdvReac Type Severity Reaction Status Date / Time cefaclor [From Ceclor] AdvReac Intermediate Verified 10/06/22 09:09 tramadol [From Ultram] AdvReac Mild Verified 10/06/22 09:09 morphine AdvReac Verified 10/06/22 09:09 Worker's Comp Is this a Worker's Comp case?: No [facility] Disclaimer: The information contained in this section may have been updated after the patient was seen, as this information can be updated by other users. 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) Smoking Status: Never smoker alcohol intake: never current occupational status: other Travel in the last 8 weeks: None ROS Obtained: Yes All systems reviewed & no additional complaints except as documented Constitutional Constitutional: Denies chills and Denies fever(s) Eyes Eyes: Denies eye discharge ENT Ears, Nose, Mouth, and Throat: Denies dizziness, Denies otalgia and Denies sore throat Cardiovascular Cardiovascular: Denies chest pain Respiratory Respiratory: Denies shortness of breath, Denies chest congestion, Denies cough, Denies stridor and Denies wheezing Gastrointestinal Gastrointestingal: Denies nausea or vomiting Musculoskeletal Musculoskeletal: Reports system reviewed and no additional complaints, except as documented and Denies arthralgias Integumentary/Breasts Skin/Breast: Denies rash Neurologic Neurologic: Denies dizziness and Denies paresthesias Allergic/Immunologic Allergic/Immunologic: Denies wheezing Physical Exam General General appearance: alert and in no apparent distress Head Head exam: atraumatic, normocephalic and normal inspection Eye Eye exam: Present normal appearance, PERRL and EOMI ENT ENT exam: Present mucous membranes moist, TM's normal bilaterally and normal external ear exam Expanded ENT Exam Nose exam: Absent sinus tenderness Nasal speculum exam: Bilateral: normal Mouth exam: Present normal external inspection; Absent drooling Teeth exam: Present dental caries, fractured tooth # and dental tenderness # Throat exam: Present normal inspection Neck Neck exam: Present normal inspection, full ROM and trachea midline; Absent meningismus or lymphadenopathy Chest Chest inspection: Present normal inspection and symmetric chest wall rise; Absent tenderness Respiratory Respiratory exam: Present normal lung sounds bilaterally; Absent respiratory distress Cardiovascular Cardiovascular exam: Present regular rate and normal rhythm; Absent JVD Abdominal Exam Abdominal exam: Present soft and normal bowel sounds; Absent distention, tenderness or guarding Extremities Exam Extremities exam: Present normal inspection, full ROM and normal capillary refill; Absent calf tenderness Back Exam Back exam: Present normal inspection; Absent tenderness Neurological Exam Neurological exam: Present alert and oriented X3 Psychiatric Psychiatric exam: Present normal affect and normal mood Skin Skin exam: Present warm, dry, intact and normal color Lymphatic Lymphatic Findings: no adenopathy Medical Decision Making Medical Records Medical records reviewed: No I reviewed the patient's medical records. Screening: Per USPSTF and CDC recommendations, given the prevalence of disease in our region, it is our hospital?s policy to screen for HIV and viral Hepatitis for all patients aged 18 and over and those with ongoing risk factors. Flip Inquiry Pt receiving controlled substance: No Vital Signs: 08/05/24 10:13 Temperature 98.5 F Temperature Source Oral Pulse Rate [Radial] 63 Respiratory Rate 18 Blood Pressure [Right Arm] 121/68 Blood Pressure Mean [Right Arm] 85 Blood Pressure Source [Right Arm] Automatic Cuff Blood Pressure Position [Right Arm] Sitting 02 Sat by Pulse Oximetry 99 Oxygen Delivery Method Room Air
[2024-08-05 11:19] VITALS: BP 121/68; PULSE 63; RESP 18; TEMP 36.9; O2SAT 99
== END 2024-08-05 11:20 | disposition home or self-care (01) ==
PROVIDERS: Emergency Provider Nurse Practitioner Family
DX: K04.7 Periapical abscess without sinus (principal); R68.84 Jaw pain
CPT/HCPCS: 99212; 99214; G0463

== ENCOUNTER 2024-10-02 15:00 | Outpatient (RCR) | payer BC, SELFPAY | END 2024-10-02 23:59 | disposition home or self-care (01) | LOC: PT 15:00 | PROVIDERS: Visit Provider Orthopaedic Surgery | DX: M25.572 Pain in left ankle and joints of left foot (principal) | CPT/HCPCS: 97014; 97016; 97110; 97163; 97530; G0283 ==

== ENCOUNTER 2024-12-25 10:56 | Outpatient (CLI) | payer BC, SELFPAY | END 2024-12-25 23:59 | disposition home or self-care (01) | LOC: LAB.DROPOF 12-26 11:06 | PROVIDERS: PCP Student in an Organized Health Care Education/Training Program; Visit Provider Student in an Organized Health Care Education/Training Program | DX: M54.9 Dorsalgia, unspecified (principal) | CPT/HCPCS: 87086 ==

== ENCOUNTER 2025-07-01 12:20 | Outpatient (CLI) | payer BC, SELFPAY ==
--- OUTSIDE RECORDS SUMMARY | 2025-05-13 10:12 | XMS_ITS | Encounter Summary ---
Author Organization [facility] Address [address] [place] [address] Care Team Providers Care Environmental Inspector Name Role Phone Gabrielle Pierce DO Primary Care Provider Reason for Referral * Imaging (Routine) - Closed Specialty Diagnoses / Procedures Referred By Jessika t Referred To Contact Radiology Diagnoses Post-traumatic arthritis of ankle, left Procedures FL Guided Aspiration or Injection Intermediate Joint Left Consult to Interventional Radiology Brittni Mina PA [address] [address] Phone: tel: fax: Referral ID Status Reason Start Date Expiration Date Visits Re quested Visits Authorized [id number] Closed 04/04/2025 10/04/2026 1 1 Reason for Visit * Imaging (Routine) - Closed Specialty Diagnoses / Procedures Referred By Contac t Referred To Contact Radiology Diagnoses Post-traumatic arthritis of ankle, left Procedures FL Guided Aspiration or Injection Intermediate Joint Left Consult to Interventional Radiology Brittni Mina PA [address] [facility] [address] [place] [address] Phone: tel: fax: Referral ID Status Reason Start Date Expiration Date Visits Re quested Visits Authorized [id number] Closed 04/04/2025 10/04/2026 1 1 Encounter Details Date Type Department Care Team (Latest Contact Info) Description 05/13/2025 10:12 AM EDT - 05/13/2025 11:59 PM EDT Hospital Encounter [facility] Radiology [address] [place] [address] Post-traumatic arthritis of ankle, left Discharge Disposition: Home or Self Care Social History Tobacco Use Types Packs/Day Years Used Date Smoking Tobacco: Former Cigarettes 1 20 Q uit: 11/14/2000 Smokeless Tobacco: Never Alcohol Use Standard Drinks/Week Comments No 0 (1 standard drink = 0.6 oz pur e alcohol) PHQ-2 Answer Date Recorded Patient Health Questionnaire-2 Score 0 03/09/2024 PHQ-2A Answer Date Recorded Depression Risk 0 12/08/2022 Comments No Sex and Gender Information Value Date Recorded Sex Assigned at Not on file Legal Sex Female 8:29 PM EDT Gender Identity Not on file Sexual Orientation Not on file documented as of this encounter Medications at Time of Discharge acetaminophen (Tylenol) 500 MG tablet Take 2 tablets (1,000 mg) by mouth every 6 (six) hours if needed for pain. 100 tablet 03/21/2024 albuterol 108 (90 Base) MCG/ACT inhaler INHALE 2 PUFFS FOUR TIMES DAILY DIRECTED. 09/14/2017 amLODIPine (Norvasc) 5 MG tablet TAKE 1 TABLET BY MOUTH EVERY DAY FOR BLOOD PRESSURE 11/28/2022 ascorbic acid (Vitamin C) 500 MG tablet Take 1 tablet (500 mg) by mouth 1 (one) time each day. 50 tablet 03/21/2024 atorvastatin (Lipitor) 20 MG tablet Take 1 tablet (20 mg) by mouth nightly. 11/02/2022 busPIRone (Buspar) 15 MG tablet Take 1 tablet (15 mg) by mouth 3 (three) times a day. 12/07/2022 cetirizine (ZyrTEC) 10 MG tablet Take 1 tablet (10 mg) by mouth daily. cholecalciferol (Vitamin D3) 1.25 MG (05919 UT) capsule Take 1 capsule (50,000 Units) by mouth 1 (one) time per week. Tuesday cloNIDine (Catapres) 0.2 MG tablet Take 1 tablet (0.2 mg) by mouth nightly. 09/13/2022 diazePAM (Valium) 2 MG tablet Take 1 tablet (2 mg) by mouth every 8 hours as needed for anxiety for up to 2 doses. 2 tablet 01/03/2025 famotidine (Pepcid) 40 MG tablet Take 1 tablet (40 mg) by mouth nightly. 10/09/2022 fluticasone (Flonase) 50 MCG/ACT nasal spray 01/07/2025 LORazepam (Ativan) 1 MG tablet Take 1 tablet (1 mg) by mouth as needed. 12/07/2022 montelukast (Singulair) 10 MG tablet Take 1 tablet (10 mg) by mouth nightly. 10/26/2022 pantoprazole (Protonix) 40 MG EC tablet Take 1 tablet (40 mg total) by mouth 2 (two) times a day. Do not crush, chew, or split. 60 tablet 3 12/08/2022 senna-docusate (Yoselin-Colace) 8.6-50 MG tablet Take 1 tablet by mouth 1 (one) time each day. 14 tablet 03/21/2024 traZODone (Desyrel) 50 MG tablet Take 2 tablets (100 mg) by mouth nightly. 10/27/2022 Trintellix 10 MG tablet Take 1 tablet (10 mg) by mouth daily. 12/07/2022 zolpidem (Ambien) 10 MG tablet Take 1 tablet (10 mg) by mouth at night as needed for sleep. meloxicam (Mobic) 15 MG tablet TAKE 1 TABLET BY MOUTH ONCE DAILY 30 tablet 1 12/17/2024 07/01/2025 documented as of this encounter Miscellaneous Notes * Post-Procedure Note - Carlitos Upton DO - 05/13/2025 10:30 AM EDT Radiology Brief Postprocedure Note Attending: Dr Fitzpatrick Gear Repair Supervisor: Alexsandra Technologist: Kaitlyn Pre-operative Diagnosis: L ankle pain Post-operative Diagnosis: same Technical/Surgical Procedures Used: FL guided L ankle injection Specimen Obtained: No Complications: None Estimated Blood Loss: none Medications As of 05/13/25 1119 lidocaine PF (Xylocaine) 1 % injection 100 mg (mL) Total volume: 5 mL Date/Time Rate/Dose/Volume Action 05/13/25 1103 5 mL Given iohexol (OMNIPaque) 300 MG/ML injection 10 mL (mL) Total volume: 3 mL Date/Time Rate/Dose/Volume Action 05/13/25 1107 3 mL Given See detailed result report with images in PACS. The patient tolerated the procedure well without incident or complication and is in stable condition. * H&P - Carlitos Upton DO - 05/13/2025 10:30 AM EDT Images from the original note were not included. Subjective Chief complaint L ankle pain History Of Present Illness Mala Julian is a 59 y.o. female presenting with L ankle pain for L ankle injection. Medical/Surgical/Social/Family History Past 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[1] Surgical History[2] Social History[3] Family History[4] Travel History Relevant International Travel History: Travel Screening Question Response Have you been in contact with someone who was sick? No / Unsure Do you have any of the following new or worsening symptoms? None of these Have you traveled internationally or domestically in the last month? No Travel History Travel since 04/12/25 No documented travel since 04/12/25 Relevant Domestic Travel History: N/A Immunizations Not reviewed Allergies Ceclor [cefaclor], Morphine, and Tramadol Medications Current Medications[5] Objective Review of Systems Denies shortness of breath, chest pain, recent vomiting, recent bleeding, or focal neurological deficit. Physical Exam Regular heart rate. No respiratory distress. No abdominal distension. Moves extremities spontaneously. Answers questions appropriately. Last Recorded Vitals There were no vitals taken for this visit. Results Review {Vanishing Link Review Results :[id number] I have reviewed the latest lab and imaging results. Assessment & Plan Post-traumatic arthritis of ankle, left Will request consent prior to L ankle injection. [1] Past 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: Diagnosis Date Anxiety disorder, unspecified Anxiety Deep vein thrombosis (CMS/HCC) Depression GERD (gastroesophageal reflux disease) Hyperlipidemia Hypertension Migraine, unspecified, not intractable, without status migrainosus Migraine Motion sickness Overactive bladder Overactive bladder Personal history of urinary (tract) infections History of recurrent urinary tract infection PONV (postoperative nausea and vomiting) Pulmonary embolism Seasonal allergies [2] Past Surgical History: Procedure Laterality Date CATARACT EXTRACTION N/A Cataract Surgery from [facility] CHOLECYSTECTOMY N/A Cholecystectomy from [facility] HYSTERECTOMY N/A Hysterectomy from [facility] KNEE SURGERY N/A Knee Surgery from [facility] UPPER GASTROINTESTINAL ENDOSCOPY [3] Social History Tobacco Use Smoking status: Former Current packs/day: 0.00 Average packs/day: 1 pack/day for 20.0 years (20.0 ttl pk-yrs) Types: Cigarettes Quit date: 11/14/2000 Years since quittin.5 Smokeless tobacco: Never Vaping Use Vaping status: Never Used Substance Use Topics Alcohol use: No Drug use: No Comment: Drug use: No illicit drug use [4] Family History Problem Relation Name Age of Onset Migraines Mother Osteoporosis Mother Hypertension Father Christian Heart attack Father Christian Hyperlipidemia Father Christian Asthma Brother Darrel Breast cancer Paternal Grandmother Pancreatic cancer Paternal Grandmother Diabetes Sibling Migraines Daughter Breast cancer Father's Sister Pancreatic cancer Father's Sister Thyroid disease Other Malig Hyperthermia Neg Hx Pseudochol deficiency Neg Hx [5] Current Outpatient Medications Medication Sig Dispense Refill acetaminophen (Tylenol) 500 MG tablet Take 2 tablets (1,000 mg) by mouth every 6 (six) hours if needed for pain. 100 tablet 0 albuterol 108 (90 Base) MCG/ACT inhaler INHALE 2 PUFFS FOUR TIMES DAILY DIRECTED. amLODIPine (Norvasc) 5 MG tablet TAKE 1 TABLET BY MOUTH EVERY DAY FOR BLOOD PRESSURE ascorbic acid (Vitamin C) 500 MG tablet Take 1 tablet (500 mg) by mouth 1 (one) time each day. 50 tablet 0 atorvastatin (Lipitor) 20 MG tablet Take 1 tablet (20 mg) by mouth nightly. busPIRone (Buspar) 15 MG tablet Take 1 tablet (15 mg) by mouth 3 (three) times a day. cetirizine (ZyrTEC) 10 MG tablet Take 1 tablet (10 mg) by mouth daily. cholecalciferol (Vitamin D3) 1.25 MG (58629 UT) capsule Take 1 capsule (50,000 Units) by mouth 1 (one) time per week. Tuesday (Patient not taking: Reported on 09/27/2024) cloNIDine (Catapres) 0.2 MG tablet Take 1 tablet (0.2 mg) by mouth nightly. diazePAM (Valium) 2 MG tablet Take 1 tablet (2 mg) by mouth every 8 hours as needed for anxiety forup to 2 doses. 2 tablet 0 famotidine (Pepcid) 40 MG tablet Take 1 tablet (40 mg) by mouth nightly. fluticasone (Flonase) 50 MCG/ACT nasal spray LORazepam (Ativan) 1 MG tablet Take 1 tablet (1 mg) by mouth as needed. meloxicam (Mobic) 15 MG tablet TAKE 1 TABLET BY MOUTH ONCE DAILY 30 tablet 1 montelukast (Singulair) 10 MG tablet Take 1 tablet (10 mg) by mouth nightly. pantoprazole (Protonix) 40 MG EC tablet Take 1 tablet (40 mg total) by mouth 2 (two) times a day. Do not crush, chew, or split. 60 tablet 3 senna-docusate (Yoselin-Colace) 8.6-50 MG tablet Take 1 tablet by mouth 1 (one) time each day. 14 tablet 0 traZODone (Desyrel) 50 MG tablet Take 2 tablets (100 mg) by mouth nightly. Trintellix 10 MG tablet Take 1 tablet (10 mg) by mouth daily. zolpidem (Ambien) 10 MG tablet Take 1 tablet (10 mg) by mouth at night as needed for sleep. Current Facility-Administered Medications Medication Dose Route Frequency Provider Last Rate Last Admin bupivacaine PF (Marcaine) 0.25 % injection 75 mg 30 mL Injection Once Copely, Heidy Hall MD iohexol (OMNIPaque) 300 MG/ML injection 10 mL 10 mL Intra-articular Once in imaging Copely, Heidy Hall MD lidocaine PF (Xylocaine) 1 % injection 100 mg 10 mL Injection Once Copely, Heidy Hall MD triamcinolone acetonide (Kenalog-40) injection 80 mg 80 mg Intra-articular Once Copely, Heidy Hall MD documented in this encounter Plan of Treatment Upcoming Encounters Date Type Department Care Team (Late st Contact Info) Description 08/14/2025 10:00 AM EDT Appointment [facility] Radiology [address] [place] [address] 10/31/2025 7:55 AM EST Appointment [facility] [address] [place] [address] 10/31/2025 8:30 AM EST Office Visit [facility] Orthopaedic Surgery & Sports Medicine [address] [place] [address] Jose R Prakash MD [address] [place] [address] documented as of this encounter Procedures Procedure Name Priority Date/Time Associated Diagnosis Comments FL GUIDED ASPIRATION OR INJECTION INTERMEDIATE JOINT LEFT Routine 05/13/2025 11:18 AM EDT Post-traumatic arthritis of ankle, left documented in this encounter Results * FL Guided Aspiration or Injection Intermediate Joint Left (05/13/2025 11:18 AM EDT) Anatomical Region Laterality Modality Left Digital Radiogra phy Impressions 05/13/2025 2:32 PM EDT Successful intra-articular injection of the left tibiofibular joint. CRITICAL RESULT: No. COMMUNICATION: Per this written report. By electronically signing this report, I, the attending physician, attest that I was present for the entire procedure(s) and agree with the final edited report. Drafted by Carlitos Upton DO on 05/13/2025 11:49 AM Final report signed by Andreas Fitzpatrick MD on 05/13/2025 2:32 PM Narrative 05/13/2025 2:32 PM EDT CLINICAL INDICATION: post traumatic arthritis ankle, left COMPARISON: Radiograph 04/04/2025. Injection 02/08/2025. FINDINGS: Redemonstrated screw fixation of the talar dome, plate and screw fixation of the medial malleolus, and subtalar fusion screws. TECHNIQUE: Potential benefits, alternatives and risks (including bleeding, infection and possible damage to the adjacent soft tissues) were explained to the patient. The patient voiced understanding and agreed to give verbal and written consent for the procedure to be completed. Informed consent was then signed and placed into the patient's medical chart. Appropriate time out was performed to confirm patient identity and planned procedure and side. The patient was prepped and draped in the usual sterile fashion. Local anesthetic with 1% lidocaine was provided and the subcutaneous tissues were infiltrated. A 25-gauge needle was into the tibiotalar joint. 3 mL of a combination of 40 mg Kenalog, 0.25% bupivacaine and Omnipaque 300 was introduced using fluoroscopic monitoring. A final spot radiograph was obtained. The patient was educated regarding potential complications and instructed to contact our department should there be a concern regarding developing complication. Fluoroscopy Time: 0.3 minutes. Procedure Note Andreas Fitzpatrick MD - 05/13/2025 CLINICAL INDICATION: post traumatic arthritis ankle, left COMPARISON: Radiograph 04/04/2025. Injection 02/08/2025. FINDINGS: Redemonstrated screw fixation of the talar dome, plate and screw fixationof the medial malleolus, and subtalar fusion screws. TECHNIQUE: Potential benefits, alternatives and risks (including bleeding, infectionand possible damage to the adjacent soft tissues) were explained to thepatient. The patient voiced understanding and agreed to give verbal andwritten consent for the procedure to be completed. Informed consent wasthen signed and placed into the patient's medical chart. Appropriate timeout was performed to confirm patient identity and planned procedure andside. The patient was prepped and draped in the usual sterile fashion. Localanesthetic with 1% lidocaine was provided and the subcutaneous tissueswere infiltrated. A 25- gauge needle was into the tibiotalar joint. 3 mL ofa combination of 40 mg Kenalog, 0.25% bupivacaine and Omnipaque 300 wasintroduced using fluoroscopic monitoring. A final spot radiograph wasobtained. The patient was educated regarding potential complications and instructedto contact our department should there be a concern regarding developingcomplication. Fluoroscopy Time: 0.3 minutes. IMPRESSION: Successful intra-articular injection of the left tibiofibular joint. CRITICAL RESULT: No. COMMUNICATION: Per this written report. By electronically signing this report, I, the attending physician, attestthat I was present for the entire procedure(s) and agree with the finaledited report. Drafted by Carlitos Upton DO on 05/13/2025 11:49 AM Final report signed by Andreas Fitzpatrick MD on 05/13/2025 2:32 PM Brittni SHAIKH [facility]Zach FLUOROSCOPY PROCEDURES Fi nal Result documented in this encounter Visit Diagnoses Diagnosis Post-traumatic arthritis of ankle, left documented in this encounter Administered Medications Inactive Administered Medications - up to 3 most recent administrations Medication Order MAR Action Action Date Dose Rate Site bupivacaine PF (Marcaine) 0.25 % injection 75 mg 75 mg (30 mL), Injection, Once, 1 dose, On Tue05/13/25 at 1115, STAT, Imaging Protocol Orders Given 05/13/2025 11:07 AM EDT 3 mL iohexol (OMNIPaque) 300 MG/ML injection 10 mL 10 mL, Intra-articular, Once in imaging, 1 dose, Starting on Tue05/13/25 at 1018, Until Tue05/13/25 at 1107, Routine, Imaging Protocol Orders Given 05/13/2025 11:07 AM EDT 3 mL lidocaine PF (Xylocaine) 1 % injection 100 mg 100 mg (10 mL), Injection, Once, 1 dose, On Tue05/13/25 at 1115, STAT, Imaging Protocol Orders Given 05/13/2025 11:03 AM EDT 5 mL triamcinolone acetonide (Kenalog-40) injection 80 mg 80 mg, Intra-articular, Once, 1 dose, On Tue05/13/25 at 1115, STAT, Imaging Protocol Orders Given 05/13/2025 11:12 AM EDT 40 mg documented in this encounter Additional Health Concerns Assessment Noted Time A fall risk assessment has been complete d for the patient 04/04/2025 8:13 AM EDT A Body Mass Index follow-up plan has been documented for the patient 04/14/2025 9:25 PM EDT documented as of this encounter Care Teams Environmental Inspector Relationship Specialty Start Date End Date Gabrielle Pierce DO [address] [place] [address] PCP - General 03/27/21 documented as of this encounter
--- OUTSIDE RECORDS SUMMARY | 2025-07-01 08:30 | XMS_ITS | Encounter Summary ---
Author Organization [facility] Address [address] [place] [address] Care Team Providers Care Fleet Service Clerk Name Role Phone Gabrielle Pierce DO Primary Care Provider Reason for Referral * Imaging (Routine) - Pending Review Specialty Diagnoses / Procedures Referred By Contac t Referred To Contact Radiology Diagnoses Post-traumatic arthritis of ankle, left Procedures FL Guided Aspiration or Injection Intermediate Joint Left Consult to Interventional Radiology Ilene Mina PA [id number] [place] [address] Phone: tel: fax: Referral ID Status Reason Start Date Expiration Date V isits Requested Visits Authorized [id number] Pending Review 07/01/2025 12/31/2026 1 1 Reason for Visit * Reason Comments Follow-up Encounter Details Date Type Department Care Team (Late st Contact Info) Description 07/01/2025 8:30 AM EDT Office Visit [facility] Orthopaedic Surgery & Sports Medicine [address] [place] [address] Jose R Prakash MD [address] [facility] [address] [place] [address] Post-traumatic arthritis of ankle, left (Primary Dx) Social History Tobacco Use Types Packs/Day Years [...] on file documented as of this encounter Last Filed Vital Signs Vital Sign Reading Time Taken Comments Blood Pressure 120/86 07/01/2025 8:47 AM EDT Pulse 77 07/01/2025 8:47 AM EDT Temperature 36.6 C (97.9 F) 07/01/2025 8:47 AM EDT Respiratory Rate - - Oxygen Saturation 98% 07/01/2025 8:47 AM EDT Inhaled Oxygen Concentration - - Weight 74.4 kg (164 lb) 07/01/2025 8:47 AM EDT Height 162.6 cm (5' 4 ) 07/01/2025 8:47 AM EDT Body Mass Index 28.15 07/01/2025 8:47 AM EDT documented in this encounter Miscellaneous Notes * Addendum Note - Ilene Mina PA - 07/01/2025 8:30 AM EDTAddended by: ILENE MINA on: 07/01/2025 02:30 PM Modules accepted: Orders * Progress Notes - Ilene Mina PA - 07/01/2025 8:30 AM EDT Chief complaint: s/p ORIF left bimalleolar ankle fracture, left talar body fracture, subtalar fusion DOS: 03/21/2024 HPI: Mala Julian is a 59 year old female who presents to clinic for follow up 15 months s/p the above stated procedure. Patient states that she has been doing okay since her last visit. She underwent a second injection at the end of April and states that it was placed in a slightly different place and she did not have as much pain relief as she did after the first injection. She states that i t helped minimally but did not resolve her pain like the first injection did. She is interested in trying another injection to see if it would help like the first one did. Physical Assessment: Left lower extremity: Well-healed surgical incisions No TTP No erythema, ecchymosis, edema Knee ROM 0-120 Ankle ROM 10 dorsiflexion, 20 plantarflexion Strength 5/5 EHL/FHL/GSC/TA SILT sp/dp/t/s/s +2 dp/pt pulses XRAY: 3 views left ankle, 3 views left foot were ordered, reviewed, and interpreted by us, showing subtalar fusion with healed ankle fracture, increased collapse of talus with hardware in place, no signs of loosening or failure Assessment: 59 year old female Status Post ORIF left bimalleolar ankle fracture, left talar body fracture, subtalar fusion with posttraumatic tibiotalar arthritis Plan: -Continue WBAT LLE -Will trial another injection -Tibiotalar injection ordered, to be performed after 08/13 -Diclofenac refilled -FU 4 months with imaging The patients images were discussed with them. The patient was given an opportunity to ask questionsand all their questions were answered to their satisfaction. The patient was seen and evaluated by Dr. Prakash. Ilene Mina PA-C Department of Orthopaedic Surgery and Sports Medicine Consult Pager: [phone] Service Pager:[phone] documented in this encounter Plan of Treatment Upcoming Encounters Date Type Department Care Team (Late st Contact Info) Description 08/14/2025 10:00 AM EDT Appointment [facility] Radiology [address] [place] [address] 10/31/2025 7:55 AM EST Appointment [facility] Radiology [address] [place] [address] 10/31/2025 8:30 AM EST Office Visit [facility] Orthopaedic Surgery & Sports Medicine [address] [place] [address] Jose R Prakash MD [address] [place] [address] Scheduled Orders Name Type Priority Associated Diagnoses Orde r Schedule XR Ankle Left 3+ Views Imaging Routine Post-traumatic arthritis of ankle, left 1 Occurrences starting 07/01/2025 until 01/02/2027 XR Foot Left 3+ Views Imaging Routine Post-traumatic arthritis of ankle, left 1 Occurrences starting 07/01/2025 until 01/02/2027 FL Guided Aspiration or Injection Intermediate Joint Left Imaging Routine Post-traumatic arthritis of ankle, left Expected: 07/01/2025, Expires: 01/02/2027 documented as of this encounter Visit Diagnoses Diagnosis Post-traumatic arthritis of ankle, left- Primary documented in this encounter Additional Health Concerns Infection Onset Date Last Indicated Resolved Time 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
--- OUTSIDE RECORDS SUMMARY | 2025-07-01 08:55 | XMS_ITS | Encounter Summary ---
Author Organization [facility] Address [address] [place] [address] Care Team Providers Care Convalescent Sitter Name Role Phone Gabrielle Pierce DO Primary Care Provider Encounter Details Date Type Department Care Team (Latest Contact Info) Description 07/01/2025 8:55 AM EDT - 07/01/2025 11:59 PM EDT Hospital Encounter [facility] [address], [address] [place] [address] Post-traumatic arthritis of ankle, left; Displaced fracture of body of left talus, initial encounter for closed fracture Discharge Disposition: Home or Self Care Social [...] mouth daily. cholecalciferol (Vitamin D3) 1.25 MG (23060 UT) capsule Take 1 capsule (50,000 Units) by mouth 1 (one) time per week. Tuesday cloNIDine (Catapres) 0.2 MG tablet Take 1 tablet (0.2 mg) by mouth nightly. 09/13/2022 diazePAM (Valium) 2 MG tablet Take 1 tablet (2 mg) by mouth every 8 hours as needed for anxiety for up to 2 doses. 2 tablet 01/03/2025 diclofenac (Voltaren) 75 MG EC tablet Take 1 tablet by mouth 2 times a day. Do not crush, chew, or split. 60 tablet 2 07/01/2025 09/29/2025 famotidine (Pepcid) 40 MG tablet Take 1 [...] mouth at night as needed for sleep. documented as of this encounter Plan of Treatment Upcoming Encounters Date Type Department Care Team (Late st Contact Info) Description 08/14/2025 10:00 AM EDT Appointment [facility] [address] [place] [address] 10/31/2025 7:55 AM EST Appointment [facility] [address], [address] [place] [address] 10/31/2025 8:30 AM EST Office Visit [facility] [address], [address] [place] [address] Jose R Prakash MD [address] [place] [address] documented as of this encounter Procedures Procedure Name Priority Date/Time Associated Diagnosis Comments XR FOOT LEFT 3+ VIEWS Routine 07/01/2025 9:12 AM EDT Post-traumatic arthritis of ankle, left Displaced fracture of body of left talus, initial encounter for closed fracture XR ANKLE LEFT 3+ VIEWS Routine 07/01/2025 9:12 AM EDT Post-traumatic arthritis of ankle, left Displaced fracture of body of left talus, initial encounter for closed fracture documented in this encounter Results * XR Ankle Left 3+ Views (07/01/2025 9:12 AM EDT) Anatomical Region Laterality Modality Lower Extremities, Ankle Left Digital Radiography Impressions 07/01/2025 10:16 AM EDT Redemonstration of ORIF of comminuted talar dome fracture with associated osteonecrosis. ORIF the distal tibia and subtalar fusion hardware is again noted in similar alignment to prior. There is subtle lucency about the subtalar screws could represent a component of loosening. Mineralization is again noted in the posterior tibiotalar joint space. CRITICAL RESULT: No. COMMUNICATION: Per this written report. By electronically signing this report, I, the attending physician, attest that I have personally reviewed the images/data for the above examination(s) and agree with the final edited report. Drafted by Catarino Davila MD on 07/01/2025 9:50 AM Final report signed by Guero Gary on 07/01/2025 10:16 AM Narrative 07/01/2025 10:16 AM EDT CLINICAL INDICATION: pain TECHNIQUE: XR ANKLE LEFT 3+ VIEWS, XR FOOT LEFT 3+ VIEWS COMPARISON: 04/04/2025 foot and ankle radiographs FINDINGS: Demineralization possibly secondary to disuse. Redemonstration of medial plate and screw fixation of the distal tibia with screw fixation of comminuted talar dome fracture. Osteonecrosis of the talar dome. Subtalar fusion with posterior screw extending into the lateral tibiotalar joint. Subtle lucency about the subtalar screws. No significant change in the mid and forefoot. Mineralization the posterior joint space is similar to prior. Procedure Note Guero Gary MD - 07/01/2025 CLINICAL INDICATION: pain TECHNIQUE: XR ANKLE LEFT 3+ VIEWS, XR FOOT LEFT 3+ VIEWS COMPARISON: 04/04/2025 foot and ankle radiographs FINDINGS: Demineralization possibly secondary to disuse. Redemonstration of medialplate and screw fixation of the distal tibia with screw fixation ofcomminuted talar dome fracture. Osteonecrosis of the talar dome. Subtalarfusion with posterior screw extending into the lateral tibiotalar joint.Subtle lucency about the subtalar screws. No significant change in the midand forefoot. Mineralization the posterior joint space is similar toprior. IMPRESSION: Redemonstration of ORIF of comminuted talar dome fracture with associatedosteonecrosis. ORIF the distal tibia and subtalar fusion hardware is againnoted in similar alignment to prior. There is subtle lucency about thesubtalar screws could represent a component of loosening. Mineralization is again noted in the posterior tibiotalar joint space. CRITICAL RESULT: No. COMMUNICATION: Per this written report. By electronically signing this report, I, the attending physician, attestthat I have personally reviewed the images/data for the aboveexamination(s) and agree with the final edited report. Drafted by Catarino Davila MD on 07/01/2025 9:50 AM Final report signed by Guero Gary on 07/01/2025 10:16 AM Brittni SHAIKH IMG XR PROCEDURES Final Resul t * XR Foot Left 3+ Views (07/01/2025 9:12 AM EDT) Anatomical Region Laterality Modality Lower Extremities, Foot Left Digital Radiography Impressions 07/01/2025 10:16 AM EDT Redemonstration of ORIF of comminuted talar dome fracture with associated osteonecrosis. ORIF the distal tibia and subtalar fusion hardware is again noted in similar alignment to prior. There is subtle lucency about the subtalar screws could represent a component of loosening. Mineralization is again noted in the posterior tibiotalar joint space. CRITICAL RESULT: No. COMMUNICATION: Per this written report. By electronically signing this report, I, the attending physician, attest that I have personally reviewed the images/data for the above examination(s) and agree with the final edited report. Drafted by Catarino Davila MD on 07/01/2025 9:50 AM Final report signed by Guero Gary on 07/01/2025 10:16 AM Narrative 07/01/2025 10:16 AM EDT CLINICAL INDICATION: pain TECHNIQUE: XR ANKLE LEFT 3+ VIEWS, XR FOOT LEFT 3+ VIEWS COMPARISON: 04/04/2025 foot and ankle radiographs FINDINGS: Demineralization possibly secondary to disuse. Redemonstration of medial plate and screw fixation of the distal tibia with screw fixation of comminuted talar dome fracture. Osteonecrosis of the talar dome. Subtalar fusion with posterior screw extending into the lateral tibiotalar joint. Subtle lucency about the subtalar screws. No significant change in the mid and forefoot. Mineralization the posterior joint space is similar to prior. Procedure Note Guero Gary MD - 07/01/2025 CLINICAL INDICATION: pain TECHNIQUE: XR ANKLE LEFT 3+ VIEWS, XR FOOT LEFT 3+ VIEWS COMPARISON: 04/04/2025 foot and ankle radiographs FINDINGS: Demineralization possibly secondary to disuse. Redemonstration of medialplate and screw fixation of the distal tibia with screw fixation ofcomminuted talar dome fracture. Osteonecrosis of the talar dome. Subtalarfusion with posterior screw extending into the lateral tibiotalar joint.Subtle lucency about the subtalar screws. No significant change in the midand forefoot. Mineralization the posterior joint space is similar toprior. IMPRESSION: Redemonstration of ORIF of comminuted talar dome fracture with associatedosteonecrosis. ORIF the distal tibia and subtalar fusion hardware is againnoted in similar alignment to prior. There is subtle lucency about thesubtalar screws could represent a component of loosening. Mineralization is again noted in the posterior tibiotalar joint space. CRITICAL RESULT: No. COMMUNICATION: Per this written report. By electronically signing this report, I, the attending physician, tomi I have personally reviewed the images/data for the aboveexamination(s) and agree with the final edited report. 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
--- OUTSIDE RECORDS SUMMARY | 2025-07-03 10:34 | XMS_ITS | Encounter Summary ---
Author Organization [facility] Address [address] [place] [address] Care Team Providers Care Cook Helper Name Role Phone Gabrielle Pierce DO Primary Care Provider Reason for Referral * Consultation (Routine) - Closed Specialty Diagnoses / Procedures Referred By Contac t Referred To Contact Sleep Medicine Diagnoses Major depressive disorder, recurrent episode, moderate (CMS/HCC) High risk medication use Generalized anxiety disorder Insomnia, unspecified type Rocky Myles, ALEX [address] [facility] [address] Phone: tel: fax: [facility] [address], [address] [place] [address] Phone: tel: fax: Referral ID Status Reason Start Date Expiration Date V isits Requested Visits Authorized [id number] Closed Specialty Services Required 08/13/2024 02/12/2026 1 1 Encounter Details Date Type Department Care Team (Late st Contact Info) Description 08/13/2024 Community [facility] [address] [place] [address] Rocky Myles, BARREL LATHE OPERATOR INSIDE [address] [facility] [address] Major depressive disorder, recurrent episode, moderate (CMS/HCC) (Primary Dx); High risk medication use; Generalized anxiety disorder; Insomnia, unspecified type Social History Tobacco Use Types Packs/Day Years Used Date Smoking Tobacco: Former Cigarettes Q uit: 11/14/2000 Smokeless Tobacco: Never Alcohol [...] on file documented as of this encounter Plan of Treatment Upcoming Encounters Date Type Department Care Team (Late st Contact Info) Description 08/14/2025 10:00 AM EDT Appointment [facility] H Radiology [address] [place] [address] 10/31/2025 7:55 AM EST Appointment [facility] Radiology [address], [address] [place] [address] 10/31/2025 8:30 AM EST Office Visit [facility] [address], [address] [place] [address] Jose R Prakash MD [address] [place] [address] Scheduled Referrals Name Type Priority Associated Diagnoses Orde r Schedule Ambulatory referral to Adult Sleep Medicine Outpatient Referral Routine Major depressive disorder, recurrent episode, moderate (CMS/HCC) High risk medication use Generalized anxiety disorder Insomnia, unspecified type Expected: 08/13/2024 (Approximate), Expires: 02/10/2025 documented as of this encounter Visit Diagnoses Diagnosis Major depressive disorder, recurrent episode, moderate (CMS/HCC)- Primary Major depressive disorder, recurrent episode, moderate High risk medication use Generalized anxiety disorder Insomnia, unspecified type documented in this encounter Additional Health Concerns Infection Onset Date Last Indicated Resolved Time MRSA 07/01/2025 07/01/2025 Assessment Noted Time A fall risk assessment has been complete d for the patient 07/26/2024 9:27 AM EDT A Body Mass Index follow-up plan has been documented for the patient 08/02/2024 1:16 PM EDT documented as of this encounter Care Teams Cook Helper Relationship Specialty Start Date End Date Gabrielle Pierce DO [address] [place] [address] PCP - General 03/27/21 documented as of this encounter
--- OUTSIDE RECORDS SUMMARY | 2025-07-03 10:34 | XMS_ITS | Encounter Summary ---
Author Organization [facility] Address [address] [place] [address] Care Team Providers Care Life Assurance Representative Name Role Phone MarcialVannesa Gabrielle Ernie MCGUIRE Primary Care Provider Encounter Details Date Type Department Care Team (Late Contact Info) Description 06/10/2022 Community [facility] Community Practice [address] [place] [address] Kelley Frazier DO [address] [facility] [place] [address] Symptomatic menopausal or female climacteric states (Primary Dx) Social History Tobacco Use Types Packs/Day Years Used Date Smoking Tobacco: Former Alcohol Use Standard Drinks/Week Comments No 0 (1 standard drink = 0.6 oz pur e alcohol) Comments Unknown Sex and Gender Information Value Date Recorded Sex Assigned at Not on file Legal Sex Female 8:29 PM EDT Gender Identity Not on file Sexual Orientation Not on file documented as of this encounter Plan of Treatment Upcoming Encounters Date Type Department Care Team (Late Contact Info) Description 08/14/2025 10:00 AM EDT Appointment [facility] [address] [place] [address] 10/31/2025 7:55 AM EST Appointment [facility] [address], [address] [place] [address] 10/31/2025 8:30 AM EST Office Visit [facility] [address], [address] [place] [address] Jose R Prakash MD [address] [place] [address] documented as of this encounter Visit Diagnoses Diagnosis Symptomatic menopausal or female climacteric states- Primary documented in this encounter Additional Health Concerns Infection Onset Date Last Indicated Resolved Time MRSA 07/01/2025 07/01/2025 documented as of this encounter Care Teams Life Assurance Representative Relationship Specialty Start Date End Date Gabrielle Pierce DO [address] [place] [address] PCP - General 03/27/21 documented as of this encounter
--- OUTSIDE RECORDS SUMMARY | 2025-07-03 10:34 | XMS_ITS | Encounter Summary ---
Author Organization [facility] Address [address] [place] [address] Care Team Providers Care Jig And Fixture Repairer Name Role Phone Gabrielle Pierce DO Primary Care Provider Encounter Details Date Type Department Care Team (Late st Contact Info) Description 06/03/2025 Telephone [facility] [address] [place] [address] Jose R Prakash MD [address] [place] [address] Social History Tobacco Use Types Packs/Day Years [...] on file documented as of this encounter Miscellaneous Notes * Telephone Encounter - Kayleen Frances - 06/03/2025 2:59 PM EDT confirmed appt on 07/01/25 at830 documented in this encounter Plan of Treatment Upcoming Encounters Date Type Department Care Team (Late st Contact Info) Description 08/14/2025 10:00 AM EDT Appointment [facility] [address] [place] [address] 10/31/2025 7:[address] [facility] Radiology [address], [address] [place] [address] 10/31/2025 8:30 AM EST Office Visit [facility] Surgery [facility] Medicine [address], [address] [place] [address] Jose R Prakash MD [address] [place] [address] documented as of this encounter Visit Diagnoses Not on filedocumented in this encounter Additional Health Concerns Assessment Noted Time A fall risk assessment has been complete d for the patient 04/04/2025 8:13 AM EDT A Body Mass Index follow-up plan has been documented for the patient 04/14/2025 9:25 PM EDT documented as of this encounter Care Teams Jig And Fixture Repairer Relationship Specialty Start Date End Date Gabrielle Pierce DO [address] [place] [address] PCP - General 03/27/21 documented as of this encounter
--- OUTSIDE RECORDS SUMMARY | 2025-07-03 10:34 | XMS_ITS | Encounter Summary ---
Author Organization [facility] Address [address] [place] [address] Care Team Providers Care Whipper Name Role Phone Saul Pierceah Ernie MCGUIRE Primary Care Provider Reason for Visit * Reason Onset Date Comments HCN Patient Medication Refill Request 07/01/2025 Encounter Details Date Type Department Care Team (Late st Contact Info) Description 07/01/[address] [facility]opa[facility] Surgery [facility] Medicine [address] [place] [address] Jose R Prakash MD [address] [place] [address] HCN Patient Medication Refill Request Social History Tobacco Use Types Packs/Day Years [...] encounter Miscellaneous Notes * Telephone Encounter - Victoria Casanova - 07/01/2025 4:01 PM EDT Told patient meds were sent * Telephone Encounter - Kimberly Vernon - 07/01/2025 11:00 AM EDT Clinical Concern/Question Reason for Call: Dwain pt. Pt was supposed to have a script sent over for Diclofenac and meloxicam was sent instead. Pt is asking for a script for Diclofenac to be sent to [facility]/pharmacy #[id number] - [place], [place] - [address] contact number: [phone] (home) Optimal time of day to reach caller: ANYTIME Additional comments/information from caller: None Note: Please do not reply to this message. Follow-up communication and further actions as a result of this message need to be communicated with the patient directly, if the patient is not active onMyChart. If the patient is active on MyChart, they will receive notification of the communication/outcome via [employer]. documented in this encounter Plan of Treatment Upcoming Encounters Date Type Department Care Team (Late st Contact Info) Description 08/14/2025 10:00 AM EDT Appointment [facility] H Radiology [address] [place] [address] 10/31/2025 7:[address] [facility] Radiology [address] [place] [address] 10/31/2025 8:30 AM EST Office [facility] [address], [address] [place] [address] Jose R Prakash MD [address] [place] [address] documented as of this encounter Visit Diagnoses Not on filedocumented in this encounter Additional Health Concerns Infection Onset Date Last Indicated Resolved Time MRSA 07/01/2025 07/01/2025 Assessment Noted Time A fall risk assessment has been complete d for the patient 07/01/2025 8:47 AM EDT A Body Mass Index follow-up plan has been documented for the patient 07/01/2025 1:00 PM EDT documented as of this encounter Care Teams Whipper Relationship Specialty Start Date End Date Gabrielle Pierce DO [address] [place] [address] PCP - General 03/27/21 documented as of this encounter
--- OUTSIDE RECORDS SUMMARY | 2025-07-03 10:34 | XMS_ITS | Encounter Summary ---
Author Organization [facility] Address [address] [place] [address] Care Team Providers Care Editor Index Name Role Phone Gabrielle Pierce Primary Care Provider Encounter Details Date Type Department Care Team (Latest Contact Info) Description 05/13/2025 Travel Social History Tobacco Use Types Packs/Day Years [...] Appointment [facility] [address] [place] [address] 10/31/2025 7:55 AM EST Appointment [facility] [address], [address] [place] [address] 10/31/2025 8:30 AM EST Office Visit [facility] Medicine [address] [place] [address] Jose R Prakash MD [address] [place] [address] documented as of this encounter Visit Diagnoses Not on filedocumented in this encounter Additional Health Concerns Assessment Noted Time A fall risk assessment has been complete d for the patient 04/04/2025 8:13 AM EDT A Body Mass Index follow-up plan has been documented for the patient 04/14/2025 9:25 PM EDT documented as of this encounter Care Teams Editor Index Relationship Specialty Start Date End Date Gabrielle Pierce DO [address] [place] [address] PCP - General 03/27/21 documented as of this encounter
--- OUTSIDE RECORDS SUMMARY | 2025-07-03 10:34 | XMS_ITS | Clinical Summary ---
Author Organization [facility] Address [address] [place] [address] Care Team Providers Care Recycling Operator Name Role Phone Gabrielle Pierce DO Primary Care Provider Allergies Active Allergy Reactions Criticality Noted Date Comments Cefaclor Swelling High 11/04/2022 Morphine Rash Low 09/14/2017 Tramadol Rash Low 09/14/2017 Medications Trintellix 10 MG tablet Take 1 tablet (10 mg) by mouth daily. 12/07/19 23 Active traZODone (Desyrel) 50 MG tablet Take 2 tablets (100 mg) by mouth nightly. 10/27/20 22 Active montelukast (Singulair) 10 MG tablet Take 1 tablet (10 mg) by mouth nightly. 10/26/20 22 Active LORazepam (Ativan) 1 MG tablet Take 1 tablet (1 mg) by mouth as needed. 12/07/19 23 Active famotidine (Pepcid) 40 MG tablet Take 1 tablet (40 mg) by mouth nightly. 10/09/20 22 Active cloNIDine (Catapres) 0.2 MG tablet Take 1 tablet (0.2 mg) by mouth nightly. 09/13/20 22 Active busPIRone (Buspar) 15 MG tablet Take 1 tablet (15 mg) by mouth 3 (three) times a day. 12/07/19 23 Active atorvastatin (Lipitor) 20 MG tablet Take 1 tablet (20 mg) by mouth nightly. 11/02/20 22 Active amLODIPine (Norvasc) 5 MG tablet TAKE 1 TABLET BY MOUTH EVERY DAY FOR BLOOD PRESSURE 11/28/19 23 Active albuterol 108 (90 Base) MCG/ACT inhaler INHALE 2 PUFFS FOUR TIMES DAILY DIRECTED. 09/14/20 17 Active cetirizine (ZyrTEC) 10 MG tablet Take 1 tablet (10 mg) by mouth daily. Active pantoprazole (Protonix) 40 MG EC tablet Take 1 tablet (40 mg total) by mouth 2 (two) times a day. Do not crush, chew, or split. 60 tablet 3 12/08/19 23 Active zolpidem (Ambien) 10 MG tablet Take 1 tablet (10 mg) by mouth at night as needed for sleep. Active cholecalcifer ol (Vitamin D3) 1.25 MG (87788 UT) capsule Take 1 capsule (50,000 Units) by mouth 1 (one) time per week. Tuesday Active senna-docusat e (Yoselin-Colace) 8.6-50 MG tablet Take 1 tablet by mouth 1 (one) time each day. 14 tablet 03/21/20 24 Active acetaminophen (Tylenol) 500 MG tablet Take 2 tablets (1,000 mg) by mouth every 6 (six) hours if needed for pain. 100 tablet 03/21/20 24 Active ascorbic acid (Vitamin C) 500 MG tablet Take 1 tablet (500 mg) by mouth 1 (one) time each day. 50 tablet 03/21/20 24 Active diazePAM (Valium) 2 MG tablet Take 1 tablet (2 mg) by mouth every 8 hours as needed for anxiety for up to 2 doses. 2 tablet 01/03/20 25 Active Additional Information Patient not taking.Reported on 07/01/2025 fluticasone (Flonase) 50 MCG/ACT nasal spray 01/07/20 25 Active diclofenac (Voltaren) 75 MG EC tablet Take 1 tablet by mouth 2 times a day. Do not crush, chew, or split. 60 tablet 2 07/01/20 25 025 Active meloxicam (Mobic) 15 MG tablet TAKE 1 TABLET BY MOUTH ONCE DAILY 30 tablet 1 12/17/19 25 025 Discontinued(Re order) meloxicam (Mobic) 15 MG tablet Take 1 tablet by mouth daily. 30 tablet 1 07/01/20 25 025 Discontinued Active Problems Problem Noted Date Diagnosed Date Traumatic closed displaced f racture of talus, right, initial encounter 03/21/2024 Displaced fracture of body o f left talus, initial encounter for closed fracture 03/15/2024 Encounters Date Type Department Care Team Description 07/01/2025 8:55 AM EDT - 07/01/2025 11:59 PM EDT Hospital Encounter [facility] Radiology [address], [address] [place] [address] Post-traumatic arthritis of ankle, left; Displaced fracture of body of left talus, initial encounter for closed fracture Discharge Disposition: Home or Self Care 07/01/2025 8:30 AM EDT Office Visit [facility] [address], [address] [facility] [address] [place] [address] Jose R Prakash MD Post-traumatic arthritis of ankle, left (Primary Dx) 07/01/2025 Telephone [facility] [address], [address] [place] [address] [address] [place] [address] Jose R Prakash MD [facility] Patient Medication Refill Request 07/01/2025 Travel 06/03/2025 Telephone [facility] [address], [address] [place] [address] [address] [place] [address] Jose R Prakash MD 05/13/2025 10:12 AM EDT - 05/13/2025 11:59 PM EDT Hospital Encounter [facility] Radiology [address] [place] [address] Post-traumatic arthritis of ankle, left Discharge Disposition: Home or Self Care 05/13/2025 Travel 04/04/2025 8:30 AM EDT Office Visit [facility] [address], [address] [place] [address] [address] [place] [address] Jose R Prakash MD Post-traumatic arthritis of ankle, left (Primary Dx); Displaced fracture of body of left talus, initial encounter for closed fracture 04/04/2025 8:16 AM EDT - 04/04/2025 11:59 PM EDT Hospital En[facility] [address], [address] [place] [address] Post-traumatic arthritis of ankle, left; Displaced fracture of body of left talus, initial encounter for closed fracture Discharge Disposition: Home or Self Care 04/04/2025 Travel from Last 3 Months Family History 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 Relation Name Comments Asthma Brother Darrel Migraines Daughter Heart attack Father Christian Hyperlipidemia Father Christian Hypertension Father Christian Breast cancer Father's Sister 1 Pancreatic cancer Father's Sister 2 Migraines Mother PS Osteoporosis Mother PS Thyroid disease Other Breast cancer Paternal Grandmother Pancreatic cancer Paternal Grandmother Diabetes Sibling Malig Hyperthermia Neg Hx Pseudochol deficiency Neg Hx Relation Name Status Comments Brother Darrel Daughter Father Christian Father's Sister 1 Father's Sister 2 Mother PS Other Paternal Grandmother Sibling Social History Tobacco Use Types Packs/Day Years Used Date Smoking Tobacco: Former Cigarettes 1 20 Q uit: 11/14/2000 Smokeless Tobacco: Never Tobacco Cessation:Counseling Given: Not Answered Alcohol Use Standard Drinks/Week Comments No 0 [...] on file Sexual Orientation Not on file Last Filed Vital Signs Vital Sign Reading Time Taken Comments Blood Pressure 120/86 07/01/2025 8:47 AM EDT Pulse 77 07/01/2025 8:47 AM EDT Temperature 36.6 C (97.9 F) 07/01/2025 8:47 AM EDT Respiratory Rate 11 03/21/2024 11:00 PM EDT Oxygen Saturation 98% 07/01/2025 8:47 AM EDT Inhaled Oxygen Concentration - - Weight 74.4 kg (164 lb) 07/01/2025 8:47 AM EDT Height 162.6 cm (5' 4 ) 07/01/2025 8:47 AM EDT Body Mass Index 28.15 07/01/2025 8:47 AM EDT Plan of Treatment Upcoming Encounters Date Type Department Care Team (Late st Contact Info) Description 08/14/2025 10:00 AM EDT Appointment [facility] [address] [place] [address] 10/31/2025 7:55 AM EST Appointment [facility] Radiology [address], [address]st [place] [address] 10/31/2025 8:30 AM EST Office Visit [facility] [address], [address] [place] [address] Jose R Prakash MD [address] [place] [address] Health Maintenance Due Date Last Done Comments [facility]-/Child/Adol SDOH Screenings 1964 [facility]- SDOH Screenings 1982 [facility]-Adult SDOH Screenings 1982 [facility]-DTaP,Tdap,and Td Vaccines (1 - Tdap) 1983 CT Colonography 2009 Colonoscopy 2009 FIT-DNA 2009 FIT 2009 FOBT 2009 Sigmoidoscopy 2009 [facility]-Colorectal Cancer Screening 2009 [facility]-Pneumococcal Vaccine: 50+ Years (1 of 1 - PCV) 2014 [facility]-Zoster Vaccines (1 of 2) 2014 [id number] Vaccine (2 - Prasad risk series) 05/23/2021 04/25/2021 [facility]-RSV Vaccine: 60+ Years or (1 - Risk 60-74 years 1-dose series) 2024 [facility]-Depression Screening 03/09/2025 03/09/2024, 11/15 [facility]-Influenza Vaccine (#1) 2025 08/30/2019, [facility]-Breast Cancer Screening 03/13/2027 04/, 11/04/2022, 12/26/2019, Additional history exists [facility]-Hepatitis A Vaccines Aged Out 03/12/2011 No longer eligible based on patient's age to complete this topic [facility]-HIV Screening Completed 03/02/2024 [facility]-Hepatitis C Screening Completed 03/02/2024 [facility]-Obesity Intervention Completed 025, 04/04/2025, 03/08/2025, Additional history exists HPV Vaccines Aged Out No longer eligi ble based on patient's age to complete this topic [facility]-HIB Vaccines Aged Out No longer e ligible based on patient's age to complete this topic [facility]-IPV Vaccines Aged Out No longer e ligible based on patient's age to complete this topic [facility]-Rotavirus Vaccines Aged Out No lo nger eligible based on patient's age to complete this topic Medical Devices Implanted Type Area Manager Distribution Center Device Identifier Shelf Expiration Date Model / Serial / Lot Tissue Augment Bone Graft Injectable Kit 3cc - Sna - [id number] Implanted:Qty: 1 on 03/21/2024 by Jose R Prakash MD at [facility] Collagen Left: Ankle [employer]-[id number] 11/10/2026 [id number] / NA / [id number] Plate [employer] Narrow Lock T-Shape 2.7mm/2x10 Hole - Sna - [id number] Implanted:Qty: 1 on 03/21/2024 by Jose R Prakash MD at [facility] Plate Left: Ankle [employer] ([facility])-[id number] / NA / Screw 4.0mm Fixos Compression Headless 36mm - Sna - [id number] Implanted:Qty: 1 on 03/21/2024 by Jose R Prakash MD at [facility] Screw Left: Foot [employer] ([facility])-[id number] 03/21/2025 [id number] / NA / Screw 2.7mm#Locking T8 Full Thread L10mm - Sna - [id number] Implanted:Qty: 1 on 03/21/2024 by Jose R Prakash MD at [facility] Screw Left: Ankle [employer] ([facility])-[id number] 68 [id number] / NA / Screw 4.0mm Fixos Compression Headless 38mm - Sna - [id number] Implanted:Qty: 1 on 03/21/2024 by Jose R Prakash MD at [facility] Screw Left: Foot [employer] ([facility])-[id number] 03/21/2025 [id number] / NA / Screw 2.4mm Bone T8 Full Thread L36mm - Sna - [id number] Implanted:Qty: 1 on 03/21/2024 by Jose R Prakash MD at [facility] Screw Left: Foot [employer] ([facility])-[id number] 68 [id number] / NA / Screw 4.0mm Fixos Compression Headless 28mm - Sna - [id number] Implanted:Qty: 1 on 03/21/2024 by Jose R Prakash MD at [facility] Screw Left: Foot [employer] ([facility])-[id number] 68 [id number] / NA / Screw 7.0mm Fixos Compress Headless Short 70mm - Sna - [id number] Implanted:Qty: 1 on 03/21/2024 by Jose R Prakash MD at [facility] Screw Left: Foot [employer] ([facility])-[id number] 68 [id number] / NA / Screw 7.0mm Fixos Compress Headless Short 75mm - Sna - [id number] Implanted:Qty: 1 on 03/21/2024 by Jose R Prakash MD at [facility] Screw Left: Foot [employer] ([facility])-1391 68 [id number] / NA / Screw 2.7mm Bone T8 Full Thread L26mm - Sna - [id number] Implanted:Qty: 1 on 03/21/2024 by Jose R Prakash MD at [facility] Screw Left: Ankle [employer] ([facility])-[id number] 68 [id number] / NA / Screw 2.7mm Bone T8 Full Thread L34mm - Sna - [id number] Implanted:Qty: 1 on 03/21/2024 by Jose R Prakash MD at [facility] Screw Left: Ankle [employer] ([facility])-[id number] 68 [id number] / NA / Screw 2.7mm Variax2 Ti T10 Lock Fullthrd 46mm - Sna - [id number] Implanted:Qty: 1 on 03/21/2024 by Jose R Prakash MD at [facility] Screw Left: Ankle [employer] ([facility])-[id number] 68 [id number] / NA / Graft Bone Dbm Gel [facility] - [id number] Implanted:Qty: 1 on 03/21/2024 by Jose R Prakash MD at [facility] Left: Foot [employer] ([facility])-[id number] 09/25/2026 [id number] / / [id number] Procedures Procedure Name Priority Date/Time Associated Diagnosis Comments XR ANKLE LEFT 3+ VIEWS Routine 9:12 AM EDT Post-traumatic arthritis of ankle, left Displaced fracture of body of left talus, initial encounter for closed fracture XR FOOT LEFT 3+ VIEWS Routine 07/01/2025 9:12 AM EDT Post-traumatic arthritis of ankle, left Displaced fracture of body of left talus, initial encounter for closed fracture FL GUIDED ASPIRATION OR INJECTION INTERMEDIATE JOINT LEFT Routine 05/13/2025 11:18 AM EDT Post-traumatic arthritis of ankle, left XR FOOT LEFT 3+ VIEWS Routine 04/04/2025 8:26 AM EDT Post-traumatic arthritis of ankle, left Displaced fracture of body of left talus, initial encounter for closed fracture XR ANKLE LEFT 3+ VIEWS Routine 5 8:26 AM EDT Post-traumatic arthritis of ankle, left Displaced fracture of body of left talus, initial encounter for closed fracture MAMMOGRAPHY BREAST SCREENING TOMOSYNTHESIS BILATERAL Routine 03/13/2025 4:18 PM EDT Encounter for screening mammogram for malignant neoplasm of breast HEPATITIS C ANTIBODY - ED W/REFLEX TO HCV QUANT PCR STAT 03/02/2024 5:30 PM EDT ED HIV 1/2 ANTIBODY/ANTIGEN SCREEN WITH REFLEX TO HIV I/II DIFFERENTIATION STAT 03/02/2024 5:30 PM EDT from Last 3 Months or Most Recently Relevant to Health Maintenance Results * XR Foot Left 3+ Views (07/01/2025 9:12 AM EDT) Only the most recent of2 resultswithin the time period is included. Anatomical Region Laterality Modality Lower Extremities, Foot [...] XR PROCEDURES Final Resul t * XR Ankle Left 3+ Views (07/01/2025 9:12 AM EDT) Only the most recent of2 resultswithin the time period is included. Anatomical Region Laterality Modality Lower Extremities, Ankle [...] IMG XR PROCEDURES Final Resul t * FL Guided Aspiration or Injection Intermediate [...] MD on 05/13/2025 2:32 PM Brittni SHAIKH IMG FLUOROSCOPY PROCEDURES Fi nal Result * Mammography Breast Screening Tomosynthesis Bilateral (03/13/2025 4:18 PM EDT) Anatomical Region Laterality Modality Breast Bilateral Mammography Impressions 03/15/2025 5:29 PM EDT No mammographic evidence of malignancy. BI-RADS CATEGORY: Overall: 1 - Negative RECOMMENDATION: - Routine Screening Mammogram in 1 Year. Patient Lifetime Risk Score of Breast Malignancy: 4.8% This risk assessment is calculated using the Inna Risk Assessment model which may underestimate the lifetime risk of breast malignancy. COMMUNICATION: Computer-aided detection (CAD) and tomosynthesis were utilized by the radiologist in the interpretation of this examination. The results and recommendations will be sent to the patient in a printed lay language version of the imaging report. Narrative 03/15/2025 5:29 PM EDT EXAM: Mammography Breast Screening with Tomosynthesis REASON FOR EXAM: Screening Mammogram HISTORY: Patient is 59 y.o. Family medical history includes breast cancer in 2 relatives (father's sister, paternal grandmother). Hormone history includes hormone replacement therapy (estradiol) and control. Surgical and procedural history include hysterectomy (Hysterectomy from [employer]). COMPARISON STUDIES: Compared to: 08/09/2018 Mammography Breast Screening Tomosynthesis Bilateral at [facility] 12/26/2019 Mammography Breast Screening Tomosynthesis Bilateral at [facility] 11/04/2022 Mammography Breast Screening Tomosynthesis Bilateral at [facility] BREAST COMPOSITION: There are scattered areas of fibroglandular density. FINDINGS: There are no suspicious masses, calcifications, or areas of architectural distortion. Keyla Gupta CHASSIS WIRER IMG BI PROCEDURES Final Resul t * ED HIV 1/2 Antibody/Antigen Screen w/Reflex to HIV 1/2 Differentiation (03/02/2024 5:30 PM EDT) HIV 1 & 2 Antibody/Antigen Screen Non Reactive Non Reactive 03/02/2024 7:13 PM EDT [facility] Comment:Screening for HIV 1 & 2 antibodies, and P24 antigen is NONREACTIVE. No confirmatory testing is required. Blood Venous blood specimen / Unknown Venipuncture / Unknown 03/02/2024 5:30 PM EDT 03/02/2024 6:32 PM EDT Catarino Enamorado MD LAB BLOOD ORDERABLES Final Result [facility] [address] [place] [address] * Hepatitis C Antibody - ED (03/02/2024 5:30 PM EDT) Hepatitis C Antibody Negative Negative 03/02/2024 7:14 PM EDT [facility] Blood Venous blood specimen / Unknown Venipuncture / Unknown 03/02/2024 5:30 PM EDT 03/02/2024 6:32 PM EDT Catarino Enamorado MD LAB BLOOD ORDERABLES Final Result [facility] [address] [place] [address] from Last 3 Months or Most Recently Relevant to Health Maintenance Additional Health Concerns Infection Onset Date Last Indicated MRSA 07/01/2025 07/01/2025 Insurance [facility] / [facility] Care Teams Recycling Operator Relationship Specialty Start Date End Date Gabrielle Pierce DO [address] [place] [address] PCP - General 03/27/21
--- OUTSIDE RECORDS SUMMARY | 2025-07-03 10:34 | XMS_ITS | Encounter Summary ---
Author Organization [facility] Address [address] [place] [address] Care Team Providers Care Professional Development Manager Name Role Phone Gabrielle Pierce DO Primary Care Provider Reason for Referral * Consultation (Routine) - Closed Specialty Diagnoses / Procedures Referred By Jessika espinoza Referred To Contact Gastroenterology Diagnoses Gastric reflux Kelley Fraizer DO [address] [place] [address] Phone: tel: fax: Referral ID Status Reason Start Date Expiration Date V isits Requested Visits Authorized [id number] Closed Specialty Services Required 06/23/2022 12/23/2023 1 1 Encounter Details Date Type Department Care Team (Late st Contact Info) Description 06/23/2022 Community [facility] [address] [place] [address] Kelley Frazier DO [address] [place] [address] Gastric reflux (Primary Dx) Social History Tobacco Use Types [...] Appointment [facility] [address] [place] [address] 10/31/2025 7:55 AM EST Appointment [facility] Radiology [address], [address] [place] [address] 10/31/2025 8:30 AM EST Office Visit [facility] [address], [address] [place] [address] Jose R Prakash MD [address] [place] [address] Scheduled Referrals Name Type Priority Associated Diagnoses Order Schedule Ambulatory referral to Gastroenterology Outpatient Referral Routine Gastric reflux 1 Occurrences starting 06/23/2022 until 12/24/2023 documented as of this encounter Visit Diagnoses Diagnosis Gastric reflux- Primary Esophageal reflux documented in this encounter Additional Health Concerns Infection Onset Date Last Indicated Resolved Time MRSA 07/01/2025 07/01/2025 documented as of this encounter Care Teams Professional Development Manager Relationship Specialty Start Date End Date Gabrielle Pierce DO [address] [place] [address] PCP - General 03/27/21 documented as of this encounter
--- OUTSIDE RECORDS SUMMARY | 2025-07-03 10:34 | XMS_ITS | Encounter Summary ---
Author Organization [facility] Address [address] [place] [address] Care Team Providers Care Tool Repair Technician Name Role Phone Gabrielle Pierce Primary Care Provider Encounter Details Date Type Department Care Team (Latest Contact Info) Description 07/01/2025 Travel Social History Tobacco Use Types Packs/Day [...] Appointment [facility] [address] [place] [address] 10/31/2025 7:55 AM EST Appointment [facility] [address], [address]st [place] [address] 10/31/2025 8:30 AM EST Office Visit [facility]opa[facility] Surgery [facility] Medicine [address], [address] [place] [address] Jose R Prakash MD [address] [place] [address] documented as of this encounter Visit Diagnoses [...] documented as of this encounter Care Teams Tool Repair Technician Relationship Specialty Start Date End Date Gabrielle Pierce DO [address] [place] [id number] PCP - General 03/27/21 documented as of this encounter
== END 2025-07-01 23:59 | disposition home or self-care (01) ==
LOC: LAB.DROPOF 07-03 10:17
PROVIDERS: PCP Student in an Organized Health Care Education/Training Program; Visit Provider Student in an Organized Health Care Education/Training Program
DX: R50.9 Fever, unspecified (principal)
CPT/HCPCS: 87635